=== PATIENT | male | born 1990 | race Caucasian/White ===

== ENCOUNTER → 2018-09-08 | Outpatient (CLI) | payer OTHER ==
[2015-07-31 17:00] VITALS: BP 126/57
--- NOTE | 2018-09-08 12:57 | KCIC ---
MRI of the brain without contrast 09/08/2018 Clinical History: Seizures, confusion and memory loss. Technique: Unenhanced T1-weighted sagittal and axial, T2-weighted axial and coronal and FLAIR, gradient echo and diffusion-weighted axial images of the brain were obtained. Additionally thin section FLAIR and T2-weighted coronal images through the temporal lobes were obtained Findings: Comparison is made to patient's CT scan of the head dated 07/31/2015. Some of the images are degraded by patient motion. The ventricles and sulci are within normal limits in size and configuration. No area of significant abnormal signal intensity is seen involving brain parenchyma. No extra-axial fluid collection is noted. No MRI evidence of acute ischemia/infarction. Images through the temporal lobes are within normal limits. Mild mucosal thickening in seen scattered throughout the paranasal sinuses. There are minimal bilateral mastoid effusions. Normal flow voids are seen within the major vascular structures surrounding the brain parenchyma. IMPRESSION: 1. Negative MRI of the brain. 2. Mild paranasal sinus and mastoid disease. Electronically signed by: Amish Valentin MD (09/08/2018 12:54 PM) [facility]-KCIC1
== END | disposition home or self-care (01) ==
LOC: KCIC MRI 10:36
DX: R00.0 Tachycardia, unspecified (principal); G40.909 Epilepsy, unspecified, not intractable, without status epilepticus; R41.0 Disorientation, unspecified; J34.9 Unspecified disorder of nose and nasal sinuses; M19.90 Unspecified osteoarthritis, unspecified site; F41.9 Anxiety disorder, unspecified; F17.200 Nicotine dependence, unspecified, uncomplicated; Z72.89 Other problems related to lifestyle; Z87.19 Personal history of other diseases of the digestive system
CPT/HCPCS: 70551

== ENCOUNTER 2019-03-05 19:27 | Inpatient (IN) | payer OTHER ==
[~2019-03-05] VITALS: Ht 167.6 cm; Wt 101.8 kg
[2019-03-05] MEDS ORDERED: MULTIVIT INFUSN,ADULT 4,VIT K 10 ML, THIAMINE INJ 100 MG, FOLIC ACID INJ 1 MG in IV NOR... IV ONE (20:00)
[2019-03-05 20:05] LABS: BASO # 0.1 x10^3/uL (0.0-0.2); BASO % 1 % (0-3); EOS # 0.1 x10^3/uL (0.0-0.7); EOS % 1 % (0-3); HEMATOCRIT 45.8 % (39.0-53.0); HEMOGLOBIN 15.8 g/dL (13.0-17.5); LYMPH # 4.8 x10^3/uL (1.0-4.8); LYMPH % 51 % (24-48); MEAN CORPUSCULAR HEMOGLOBIN 32 pg (25-35); MEAN CORPUSCULAR HGB CONC 35 g/dL (31-37); MEAN CORPUSCULAR VOLUME 93 fL (79-100); MONO # 0.5 x10^3/uL (0.0-1.1); MONO % 5 % (0-9); NEUT % 42 % (31-73); PLATELET COUNT 235 x10^3/uL (140-400); RED BLOOD COUNT 4.92 x10^6/uL (4.30-5.70); RED CELL DISTRIBUTION WIDTH 15.2 % (11.5-14.5); WHITE BLOOD COUNT 9.5 x10^3/uL (4.0-11.0)
[2019-03-05 20:07] LABS: BILIRUBIN,URINE NEGATIVE (NEG); CLARITY,URINE CLEAR; COLOR,URINE YELLOW; NITRITE,URINE NEGATIVE (NEG); PH,URINE 5.5; PROTEIN,URINE NEGATIVE (NEG-TRACE); UROBILINOGEN,URINE 0.2 mg/dL (0.2 mg/dL)
[2019-03-05 20:13] LABS: BACTERIA,URINE 0 /HPF (0-FEW); RBC,URINE 0 /HPF (0-2); SQUAMOUS EPITHELIAL CELL,UR OCC /LPF
[2019-03-05 20:14] LABS: CALCIUM 8.7 mg/dL (8.5-10.1); CREATININE 0.9 mg/dL (0.7-1.3); GFR 99.1; POTASSIUM 3.4 mmol/L (3.5-5.1)
[2019-03-05 20:15] LABS: BARBITURATES NEG (NEG); BENZODIAZEPINES NEG (NEG); CANNABINOIDS NEG (NEG); COCAINE NEG (NEG); METHADONE NEG (NEG); OPIATES NEG (NEG); PHENCYCLIDINE NEG (NEG)
[2019-03-05 20:16] LABS: AMPHETAMINE/METHAMPHETAMINE NEG (NEG)
[2019-03-05 20:20] LABS: DIRECT BILIRUBIN 0.1 mg/dL (0.0-0.2); TOTAL BILIRUBIN 0.5 mg/dL (0.2-1.0); TOTAL PROTEIN 8.2 g/dL (6.4-8.2)
[2019-03-05] MEDS ORDERED: ONDANSETRON PF 4 MG/2 ML VIAL. IV PRN (21:00)
[2019-03-05] MEDS ORDERED: chlordiazePOXIDE HCL 25 MG CAPSULE PO PRN (21:00)
--- NOTE | 2019-03-05 21:30 | NUR ---
Patient arrived to unit, accompanied by . Patient C/O headache and anxiety. Patient states he has been accepted to [facility] tx center and needs to detox to start Tx. Per patient he has went through withdrawal before and had seizures- seizure precautions in place. Pt in Sinus Tach, on RA, assessment complete- will continue to monitor. Call light within reach, bed in low locked position.
[2019-03-05 21:39] LABS: AMYLASE 50 U/L (25-115); LIPASE 172 U/L (73-393)
[2019-03-05 21:40] VITALS: BP 134/89
[2019-03-05] MEDS ORDERED: RIFA550T4 PO (22:26)
[2019-03-05] MEDS ORDERED: CLON1TAB11 PO (22:26)
[2019-03-05] MEDS ORDERED: METO50TA6 PO (22:26)
[2019-03-05] MEDS ORDERED: CLON0.2T PO (22:26)
[2019-03-05] MEDS ORDERED: QUET100T4 PO (22:26)
--- NOTE | 2019-03-05 22:42 | PHYS DOC ---
Past Medical History Past Medical History: Alcoholism, Liver Disease, Renal Failure, Other Additional Past Medical Histor: seizures from ETOH withdraw; cirrhosis (GUZMAN BACK APRN) Past Surgical History: Other Additional Past Surgical Histo: DIALYSIS PORT TO RIGHT CHEST (GUZMAN BACK APRN) Alcohol Use: Heavy Drug Use: Marijuana (GUZMAN BACK APRN) Adult General Chief Complaint Chief Complaint: ALCOHOL INTOXICATION HPI HPI Patient is a 28 year old male who presents with acute alcohol intoxication. The patient has been drinking heavily today and states that he has had both vodka and tequila. He has been accepted into [facility] for rehabilitation but needs to have medical detoxification done first. The patient does have a history of seizure activity when he has withdrawn from alcohol. 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 He was seen at [facility] and was sober for approximately 14 months. Prior to that he had had hepatorenal failure. He was on dialysis for several months. He states that he relapsed approximately a week and a half ago and was seen at [facility]. He did leave [facility]. He states that he has been drinking extremely heavily for the past 10-12 days. His last drink was in the car prior to entering the emergency department. (GUZMAN BACK APRN) Review of Systems Review of Systems Constitutional: Denies fever or chills [] Eyes: Denies change in visual acuity, redness, or eye pain [] HENT: Denies nasal congestion or sore throat [] Respiratory: Denies cough or shortness of breath [] Cardiovascular: No additional information not addressed in HPI [] GI: Denies abdominal pain, nausea, vomiting, bloody stools or diarrhea [] : Denies dysuria or hematuria [] Musculoskeletal: Denies back pain or joint pain [] Integument: Denies rash or skin lesions [] Neurologic: Denies headache, focal weakness or sensory changes [] Endocrine: Denies polyuria or polydipsia [] All other systems were reviewed and found to be within normal limits, except as documented in this note. (GUZMAN BACK APRN) Current Medications Current Medications Current Medications Medications (Trade) Dose Ordered Sig/Patsy Start Time Stop Time Status Last Admin Dose Admin Multivitamins 10 ml/Thiamine HCl 100 mg/Folic Acid 1 mg/Sodium Chloride 1,011.2 ml @ 1,000.088 mls/hr 1X ONCE 03/05/19 20:00 03/05/19 21:00 DC 03/05/19 20:13 1,000.088 MLS/HR (MICHELLE BRINK DO) Allergies Allergies Allergies Coded Allergies Type Severity Reaction Last Updated Verified erythromycin base Allergy Intermediate Hives 06/11/15 Yes (MICHELLE BRINK DO) Physical Exam Physical Exam Constitutional: Well developed, well nourished, no acute distress, non-toxic appearance. [] HENT: Normocephalic, atraumatic, bilateral external ears normal, oropharynx moist, no oral exudates, nose normal. [] Eyes: PERRLA, EOMI, conjunctiva normal, no discharge. [] Neck: Normal range of motion, no tenderness, supple, no stridor. [] Cardiovascular:Heart rate regular rhythm, no murmur [] Lungs & Thorax: Bilateral breath sounds clear to auscultation [] Abdomen: Bowel sounds normal, soft, no tenderness, no masses, no pulsatile masses. [] Skin: Warm, dry, no erythema, no rash. [] Back: No tenderness, no CVA tenderness. [] Extremities: No tenderness, no cyanosis, no clubbing, ROM intact, no edema. [] Neurologic: Alert and oriented X 3, patient is intoxicated Psychologic: The patient is intoxicated (GUZMAN BACK PRODUCT TRAINER) Current Patient Data Vital Signs Vital Signs Date Time Temp Pulse Resp B/P (MAP) Pulse Ox O2 Delivery O2 Flow Rate FiO2 03/05/19 20:30 124 20 100 Room Air 03/05/19 20:00 128/73 (91) 03/05/19 19:37 98.4 98.4 (MICHELLE BRINK DO) Lab Values Laboratory Tests Test 03/05/19 18:47 03/05/19 18:50 03/05/19 20:10 Urine Collection Type Unknown Urine Color Yellow Urine Clarity Clear Urine pH 5.5 Urine Specific [place] 1.010 Urine Protein Negative mg/dL (NEG-TRACE) Urine Glucose (UA) Negative mg/dL (NEG) Urine Ketones (Stick) Negative mg/dL (NEG) Urine Blood Negative (NEG) Urine Nitrite Negative (NEG) Urine Bilirubin Negative (NEG) Urine Urobilinogen Dipstick 0.2 mg/dL (0.2 mg/dL) Urine Leukocyte Esterase Negative (NEG) Urine RBC 0 /HPF (0-2) Urine WBC 1-4 /HPF (0-4) Urine Squamous Epithelial Cells Occ /LPF Urine Bacteria 0 /HPF (0-FEW) Urine Mucus Slight /LPF Urine Opiates Screen Neg (NEG) Urine Methadone Screen Neg (NEG) Urine Barbiturates Neg (NEG) Urine Phencyclidine Screen Neg (NEG) Urine Amphetamine/Methamphetamine Neg (NEG) Urine Benzodiazepines Screen Neg (NEG) Urine Cocaine Screen Neg (NEG) Urine Cannabinoids Screen Neg (NEG) Urine Ethyl Alcohol Pos (NEG) White Blood Count 9.5 x10^3/uL (4.0-11.0) Red Blood Count 4.92 x10^6/uL (4.30-5.70) Hemoglobin 15.8 g/dL (13.0-17.5) Hematocrit 45.8 % (39.0-53.0) Mean Corpuscular Volume 93 fL (79-100) Mean Corpuscular Hemoglobin 32 pg (25-35) Mean Corpuscular Hemoglobin Concent 35 g/dL (31-37) Red Cell Distribution Width 15.2 % (11.5-14.5) H Platelet Count 235 x10^3/uL (140-400) Neutrophils (%) (Auto) 42 % (31-73) Lymphocytes (%) (Auto) 51 % (24-48) H Monocytes (%) (Auto) 5 % (0-9) Eosinophils (%) (Auto) 1 % (0-3) Basophils (%) (Auto) 1 % (0-3) Neutrophils # (Auto) 4.0 x10^3uL (1.8-7.7) Lymphocytes # (Auto) 4.8 x10^3/uL (1.0-4.8) Monocytes # (Auto) 0.5 x10^3/uL (0.0-1.1) Eosinophils # (Auto) 0.1 x10^3/uL (0.0-0.7) Basophils # (Auto) 0.1 x10^3/uL (0.0-0.2) Sodium Level 147 mmol/L (136-145) H Potassium Level 3.4 mmol/L (3.5-5.1) L Chloride Level 105 mmol/L (98-107) Carbon Dioxide Level 24 mmol/L (21-32) Anion Gap 18 (6-14) H Blood Urea Nitrogen 4 mg/dL (8-26) L Creatinine 0.9 mg/dL (0.7-1.3) Estimated GFR (Cockcroft-Gault) 99.1 BUN/Creatinine Ratio 4 (6-20) L Glucose Level 147 mg/dL (70-99) H Calcium Level 8.7 mg/dL (8.5-10.1) Total Bilirubin 0.5 mg/dL (0.2-1.0) Direct Bilirubin 0.1 mg/dL (0.0-0.2) Aspartate Amino Transferase (AST) 51 U/L (15-37) H Alanine Aminotransferase (ALT) 44 U/L (16-63) Alkaline Phosphatase 126 U/L (46-116) H Total Protein 8.2 g/dL (6.4-8.2) Albumin 4.0 g/dL (3.4-5.0) Albumin/Globulin Ratio 1.0 (1.0-1.7) Amylase Level 50 U/L (25-115) Lipase 172 U/L (73-393) Ethyl Alcohol Level 281 mg/dL (0-10) H Ammonia 25 mcmol/L (11-34) Laboratory Tests 03/05/19 18:50 Laboratory Tests 03/05/19 18:50 (MICHELLE BRINK DO) EKG EKG [] (GUZMAN BACK APRN) Radiology/Procedures Radiology/Procedures [] (GUZMAN BACK APRN) Course & Med Decision Making Course & Med Decision Making Pertinent Labs and Imaging studies reviewed. (See chart for details) []The patient is being admitted to Dr. Francisco's service. Alcohol withdrawal protocol has been initiated. The patient was given a banana bag in the emergency department. (GUZMAN BACK APRN) Dragon Disclaimer Dragon Disclaimer This electronic medical record was generated, in whole or in part, using a voice recognition dictation system. (GUZMAN BACK APRN) Departure Departure Impression: Primary Impression: Acute alcohol intoxication Additional Impression: Alcohol withdrawal Disposition: 09 ADMITTED INPATIENT Admitting Physician: Madeline Francisco (GUZMAN BACK APRN) Condition: GOOD Referrals: KALPANA ROSE (PCP) Scripts Lorazepam (ATIVAN) 0.5 Mg Tablet 0.5 MG PO TID for withdrawal for 5 Days, #15 TAB Prov: JUAN ANTONIO VANEGAS MD 03/07/19 Attending Signature Attending Signature I have reviewed the PA/MILITARY PERSONNEL SPECIALIST's note and plan of care. I was available for consultation as needed during the patient's visit in the emergency department. I agree with the clinical impression, plan, and disposition. (MICHELLE BRINK DO) Problem Qualifiers GUZMAN BACK APRN Mar 05, 2019 22:42 MICHELLE BRINK DO Mar 11, 2019 00:48
[2019-03-05] MEDS: ACETAMINOPHEN 325 MG TABLET. PO PRN (22:54)
[2019-03-05 23:05] VITALS: BP 150/94
[2019-03-05] MEDS: chlordiazePOXIDE HCL 25 MG CAPSULE PO PRN (23:05)
[2019-03-06] MEDS: chlordiazePOXIDE HCL 25 MG CAPSULE PO PRN ×3 (00:13→23:43)
[2019-03-06] MEDS ORDERED: cloNIDine HCL 0.2 MG TABLET PO PRN (00:45)
[2019-03-06] MEDS ORDERED: NICOTINE 21MG PATCH. TD ONE (01:00)
[2019-03-06] MEDS: ACETAMINOPHEN 325 MG TABLET. PO PRN (03:39)
[2019-03-06 03:42] VITALS: BP 148/88
[2019-03-06 04:55] LABS: BASO % 1 % (0-3); EOS # 0.1 x10^3/uL (0.0-0.7); EOS % 2 % (0-3); HEMATOCRIT 39.2 % (39.0-53.0); HEMOGLOBIN 13.5 g/dL (13.0-17.5); LYMPH % 55 % (24-48); MEAN CORPUSCULAR HEMOGLOBIN 32 pg (25-35); MEAN CORPUSCULAR HGB CONC 34 g/dL (31-37); MEAN CORPUSCULAR VOLUME 94 fL (79-100); MONO # 0.5 x10^3/uL (0.0-1.1); MONO % 7 % (0-9); NEUT # 2.6 x10^3uL (1.8-7.7); NEUT % 36 % (31-73); PLATELET COUNT 165 x10^3/uL (140-400); RED BLOOD COUNT 4.18 x10^6/uL (4.30-5.70); RED CELL DISTRIBUTION WIDTH 15.3 % (11.5-14.5); WHITE BLOOD COUNT 7.3 x10^3/uL (4.0-11.0)
[2019-03-06 05:20] LABS: CALCIUM 8.3 mg/dL (8.5-10.1); CREATININE 0.8 mg/dL (0.7-1.3); GFR 113.5; POTASSIUM 3.2 mmol/L (3.5-5.1)
[2019-03-06 07:00] VITALS: BP 138/72
--- NOTE | 2019-03-06 08:28 | EKG ---
[facility] [address] [place] [address] Test Date: 2019-03-05 Test Time: 19:39:23 Pat Name: RK ISRAEL Department: Room: 246 1 Gender: Male Account Technician: EMIR : 1990 Requested By: GUZMAN BACK Order Number: [id number] Reading MD: Neal Yung MD Measurements Intervals [place] Rate: 146 P: -11 DE: 126 QRS: 78 QRSD: 78 T: 51 QT: 264 QTc: 413 Interpretive Statements SINUS TACHYCARDIA NON-SPECIFIC ST/T CHANGES Electronically Signed On 03-10-2019 9:39:32 CDT by Neal Yung MD
[2019-03-06] MEDS: MULTIVIT INFUSN,ADULT 4,VIT K 10 ML, THIAMINE INJ 100 MG, FOLIC ACID INJ 1 MG in IV NOR... IV SCH (08:37)
[2019-03-06] MEDS: METOPROLOL TART IMMED RELEASE 50 MG TABLET. PO SCH ×2 (08:37→21:06)
[2019-03-06] MEDS: rifAXIMin 550 MG TABLET PO SCH ×2 (08:38→21:05)
[2019-03-06] MEDS: clonazePAM 1 MG TABLET PO SCH ×2 (08:38→21:05)
[2019-03-06] MEDS: NICOTINE 21MG PATCH. TD SCH (09:41)
[2019-03-06 11:00] VITALS: BP 140/105
--- NOTE | 2019-03-06 12:07 | PDOC1 ---
History and Physical Date of Admission Date of Admission 03/06/2019 Identification/Chief Complaint Chief Complaint I want to quit drinking Problems: (1) Acute alcohol intoxication (2) Seizures Source Source: Chart review, Patient History of Present Illness History of Present Illness Patient is a 28-year-old gentleman who has a long-standing history of alcoholism was seen in previous admissions and resulted in hepatorenal syndrome at some point he has had seizure activity as a result of withdrawal from alcohol times that he has tried to stay sober. The patient recently had a stay over the last month into the new year at [facility] in [place] he relates. He finished the program unfortunately the stress in his life he recurred again to alcohol to numb his pain. When asked about this pain he relates that more of a physical and demanding job and he drinks in order to deal better with the pain. Reassurances been provided all of his concerns of been addressed to the best of my abilities the patient is not exhibiting signs of withdrawal at the present time but given his history off seizure and more severe withdrawal symptoms he will be admitted for treatment. does seem to have good insight of his problem he has a and 4 kids that he is hoping to get better in order to better take care of his family. The patient denies headache no blurred vision no seizure-like activity no syncopal episodes were reported no chest pain or palpitations reported during my encounter but he said that he had some sensations of skipped beats in the middle of the night and looked in the monitor and noticed some spikes at that time. Reassurances been provided that this may have been premature ventricular contractions which are not uncommon especially with heavy alcohol intake. Patient denies nausea vomiting no abdominal pain reported no jaundice no hematochezia QTc no hematemesis no black tarry stools were reported either. Past Medical History Pulmonary: Bronchitis Hepatobiliary: Cirrhosis Renal/: Acute renal failure Past Surgical History Past Surgical History: Other Current Medications Current Medications Current Medications Medications (Trade) Dose Ordered Sig/Patsy Start Time Stop Time Status Last Admin Dose Admin Acetaminophen (Tylenol) 650 mg PRN Q4HRS PRN 03/05/19 21:00 03/06/19 20:59 03/06/19 03:39 650 MG Chlordiazepoxide (Librium) 100 mg PRN Q1HR PRN 03/05/19 21:00 Clonazepam (KlonoPIN) 1 mg BID 03/06/19 09:00 03/06/19 08:38 1 MG Clonidine HCl (Catapres) 0.2 mg PRN TID PRN 03/06/19 00:45 Lorazepam (Ativan) 2 mg PRN Q2HRS PRN 03/06/19 12:00 UNV Metoprolol Tartrate (Lopressor) 50 mg BID 03/06/19 09:00 03/06/19 08:37 50 MG Multivitamins 10 ml/Thiamine HCl 100 mg/Folic Acid 1 mg/Sodium Chloride 1,011.2 ml @ 100 mls/ hr DAILY 03/06/19 09:00 03/10/19 19:07 03/06/19 08:37 100 MLS/HR Nicotine (Nicoderm Cq 21mg) 1 patch 1X ONCE 03/06/19 01:00 03/06/19 01:01 DC 03/06/19 00:55 1 PATCH Ondansetron HCl (Zofran) 4 mg PRN Q8HRS PRN 03/05/19 21:00 03/06/19 20:59 03/05/19 22:54 4 MG Quetiapine Fumarate (SEROquel) 100 mg HS 03/06/19 21:00 Rifaximin (Xifaxan) 550 mg BID 03/06/19 09:00 03/06/19 08:38 550 MG Allergies Allergies Allergies Coded Allergies Type Severity Reaction Last Updated Verified erythromycin base Allergy Intermediate Hives 06/11/15 Yes ROS Review of System CONSTITUTIONAL: No fever or chills EYES: No recent changes SKIN: No rash or itching CARDIOVASCULAR: No chest pain, syncope, palpitations, or edema RESPIRATORY: No SOB or cough GASTROINTESTINAL: No nausea, vomiting or abdominal pain NEUROLOGICAL: No headaches or weakness ENDOCRINE: No cold or heat intolerance GENITOURINARY: No urgency or frequency of urination MUSCULOSKELETAL: No back pain or joint pain LYMPHATICS: No enlarged lymph nodes PSYCHIATRIC: No anxiety or depression Physical Exam Physical Exam Gen.: well-developed well-nourished in no apparent distress Head: Normal shape atraumatic Eyes: Pupils equal reactive to light and accommodation, normal conjunctivae and lids Ears: Normal shape Nose: Normal shape no trauma Mouth: No exudates of the back of throat no thrush no lesions Neck: Supple no JVD no carotid bruit or lymphadenopathy no thyromegaly Chest: Lungs clear to auscultation with good inspiratory effort no crackles rales or rhonchi Cardiovascular: S1-S2 regular rhythm no murmurs gallops or rubs Abdomen: Bowel sounds present soft nontender no hepatosplenomegaly appreciated sign Extremities: No clubbing no cyanosis no edema peripheral pulses palpated bilaterally Neurological: Alert awake oriented in person time place and situation, cranial nerves II through XII intact, no motor or sensory deficits appreciated Psych: Appropriate mood, cooperative Vitals Vitals Vital Signs Date Time Temp Pulse Resp B/P (MAP) Pulse Ox O2 Delivery O2 Flow Rate FiO2 03/06/19 11:00 98.1 75 18 140/105 (117) 99 Room Air 98.1 Labs Labs Laboratory Tests Test 03/05/19 18:47 03/05/19 18:50 03/05/19 20:10 03/06/19 04:30 Urine Collection Type Unknown Urine Color Yellow Urine Clarity Clear Urine pH 5.5 Urine Specific [place] 1.010 Urine Protein Negative mg/dL (NEG-TRACE) Urine Glucose (UA) Negative mg/dL (NEG) Urine Ketones (Stick) Negative mg/dL (NEG) Urine Blood Negative (NEG) Urine Nitrite Negative (NEG) Urine Bilirubin Negative (NEG) Urine Urobilinogen Dipstick 0.2 mg/dL (0.2 mg/dL) Urine Leukocyte Esterase Negative (NEG) Urine RBC 0 /HPF (0-2) Urine WBC 1-4 /HPF (0-4) Urine Squamous Epithelial Cells Occ /LPF Urine Bacteria 0 /HPF (0-FEW) Urine Mucus Slight /LPF Urine Opiates Screen Neg (NEG) Urine Methadone Screen Neg (NEG) Urine Barbiturates Neg (NEG) Urine Phencyclidine Screen Neg (NEG) Urine Amphetamine/Methamphetamine Neg (NEG) Urine Benzodiazepines Screen Neg (NEG) Urine Cocaine Screen Neg (NEG) Urine Cannabinoids Screen Neg (NEG) Urine Ethyl Alcohol Pos (NEG) White Blood Count 9.5 x10^3/uL (4.0-11.0) 7.3 x10^3/uL (4.0-11.0) Red Blood Count 4.92 x10^6/uL (4.30-5.70) 4.18 x10^6/uL (4.30-5.70) Hemoglobin 15.8 g/dL (13.0-17.5) 13.5 g/dL (13.0-17.5) Hematocrit 45.8 % (39.0-53.0) 39.2 % (39.0-53.0) Mean Corpuscular Volume 93 fL (79-100) 94 fL (79-100) Mean Corpuscular Hemoglobin 32 pg (25-35) 32 pg (25-35) Mean Corpuscular Hemoglobin Concent 35 g/dL (31-37) 34 g/dL (31-37) Red Cell Distribution Width 15.2 % (11.5-14.5) 15.3 % (11.5-14.5) Platelet Count 235 x10^3/uL (140-400) 165 x10^3/uL (140-400) Neutrophils (%) (Auto) 42 % (31-73) 36 % (31-73) Lymphocytes (%) (Auto) 51 % (24-48) 55 % (24-48) Monocytes (%) (Auto) 5 % (0-9) 7 % (0-9) Eosinophils (%) (Auto) 1 % (0-3) 2 % (0-3) Basophils (%) (Auto) 1 % (0-3) 1 % (0-3) Neutrophils # (Auto) 4.0 x10^3uL (1.8-7.7) 2.6 x10^3uL (1.8-7.7) Lymphocytes # (Auto) 4.8 x10^3/uL (1.0-4.8) 4.0 x10^3/uL (1.0-4.8) Monocytes # (Auto) 0.5 x10^3/uL (0.0-1.1) 0.5 x10^3/uL (0.0-1.1) Eosinophils # (Auto) 0.1 x10^3/uL (0.0-0.7) 0.1 x10^3/uL (0.0-0.7) Basophils # (Auto) 0.1 x10^3/uL (0.0-0.2) 0.0 x10^3/uL (0.0-0.2) Sodium Level 147 mmol/L (136-145) 143 mmol/L (136-145) Potassium Level 3.4 mmol/L (3.5-5.1) 3.2 mmol/L (3.5-5.1) Chloride Level 105 mmol/L (98-107) 105 mmol/L (98-107) Carbon Dioxide Level 24 mmol/L (21-32) 25 mmol/L (21-32) Anion Gap 18 (6-14) 13 (6-14) Blood Urea Nitrogen 4 mg/dL (8-26) 4 mg/dL (8-26) Creatinine 0.9 mg/dL (0.7-1.3) 0.8 mg/dL (0.7-1.3) Estimated GFR (Cockcroft-Gault) 99.1 113.5 BUN/Creatinine Ratio 4 (6-20) Glucose Level 147 mg/dL (70-99) 91 mg/dL (70-99) Calcium Level 8.7 mg/dL (8.5-10.1) 8.3 mg/dL (8.5-10.1) Total Bilirubin 0.5 mg/dL (0.2-1.0) Direct Bilirubin 0.1 mg/dL (0.0-0.2) Aspartate Amino Transf (AST/SGOT) 51 U/L (15-37) Alanine Aminotransferase (ALT/SGPT) 44 U/L (16-63) Alkaline Phosphatase 126 U/L (46-116) Total Protein 8.2 g/dL (6.4-8.2) Albumin 4.0 g/dL (3.4-5.0) Albumin/Globulin Ratio 1.0 (1.0-1.7) Amylase Level 50 U/L (25-115) Lipase 172 U/L (73-393) Ethyl Alcohol Level 281 mg/dL (0-10) Ammonia 25 mcmol/L (11-34) Laboratory Tests Test 03/05/19 18:47 03/05/19 18:50 03/05/19 20:10 03/06/19 04:30 Urine Collection Type Unknown Urine Color Yellow Urine Clarity Clear Urine pH 5.5 Urine Specific [place] 1.010 Urine Protein Negative mg/dL (NEG-TRACE) Urine Glucose (UA) Negative mg/dL (NEG) Urine Ketones (Stick) Negative mg/dL (NEG) Urine Blood Negative (NEG) Urine Nitrite Negative (NEG) Urine Bilirubin Negative (NEG) Urine Urobilinogen Dipstick 0.2 mg/dL (0.2 mg/dL) Urine Leukocyte Esterase Negative (NEG) Urine RBC 0 /HPF (0-2) Urine WBC 1-4 /HPF (0-4) Urine Squamous Epithelial Cells Occ /LPF Urine Bacteria 0 /HPF (0-FEW) Urine Mucus Slight /LPF Urine Opiates Screen Neg (NEG) Urine Methadone Screen Neg (NEG) Urine Barbiturates Neg (NEG) Urine Phencyclidine Screen Neg (NEG) Urine Amphetamine/Methamphetamine Neg (NEG) Urine Benzodiazepines Screen Neg (NEG) Urine Cocaine Screen Neg (NEG) Urine Cannabinoids Screen Neg (NEG) Urine Ethyl Alcohol Pos (NEG) White Blood Count 9.5 x10^3/uL (4.0-11.0) 7.3 x10^3/uL (4.0-11.0) Red Blood Count 4.92 x10^6/uL (4.30-5.70) 4.18 x10^6/uL (4.30-5.70) Hemoglobin 15.8 g/dL (13.0-17.5) 13.5 g/dL (13.0-17.5) Hematocrit 45.8 % (39.0-53.0) 39.2 % (39.0-53.0) Mean Corpuscular Volume 93 fL (79-100) 94 fL (79-100) Mean Corpuscular Hemoglobin 32 pg (25-35) 32 pg (25-35) Mean Corpuscular Hemoglobin Concent 35 g/dL (31-37) 34 g/dL (31-37) Red Cell Distribution Width 15.2 % (11.5-14.5) 15.3 % (11.5-14.5) Platelet Count 235 x10^3/uL (140-400) 165 x10^3/uL (140-400) Neutrophils (%) (Auto) 42 % (31-73) 36 % (31-73) Lymphocytes (%) (Auto) 51 % (24-48) 55 % (24-48) Monocytes (%) (Auto) 5 % (0-9) 7 % (0-9) Eosinophils (%) (Auto) 1 % (0-3) 2 % (0-3) Basophils (%) (Auto) 1 % (0-3) 1 % (0-3) Neutrophils # (Auto) 4.0 x10^3uL (1.8-7.7) 2.6 x10^3uL (1.8-7.7) Lymphocytes # (Auto) 4.8 x10^3/uL (1.0-4.8) 4.0 x10^3/uL (1.0-4.8) Monocytes # (Auto) 0.5 x10^3/uL (0.0-1.1) 0.5 x10^3/uL (0.0-1.1) Eosinophils # (Auto) 0.1 x10^3/uL (0.0-0.7) 0.1 x10^3/uL (0.0-0.7) Basophils # (Auto) 0.1 x10^3/uL (0.0-0.2) 0.0 x10^3/uL (0.0-0.2) Sodium Level 147 mmol/L (136-145) 143 mmol/L (136-145) Potassium Level 3.4 mmol/L (3.5-5.1) 3.2 mmol/L (3.5-5.1) Chloride Level 105 mmol/L (98-107) 105 mmol/L (98-107) Carbon Dioxide Level 24 mmol/L (21-32) 25 mmol/L (21-32) Anion Gap 18 (6-14) 13 (6-14) Blood Urea Nitrogen 4 mg/dL (8-26) 4 mg/dL (8-26) Creatinine 0.9 mg/dL (0.7-1.3) 0.8 mg/dL (0.7-1.3) Estimated GFR (Cockcroft-Gault) 99.1 113.5 BUN/Creatinine Ratio 4 (6-20) Glucose Level 147 mg/dL (70-99) 91 mg/dL (70-99) Calcium Level 8.7 mg/dL (8.5-10.1) 8.3 mg/dL (8.5-10.1) Total Bilirubin 0.5 mg/dL (0.2-1.0) Direct Bilirubin 0.1 mg/dL (0.0-0.2) Aspartate Amino Transf (AST/SGOT) 51 U/L (15-37) Alanine Aminotransferase (ALT/SGPT) 44 U/L (16-63) Alkaline Phosphatase 126 U/L (46-116) Total Protein 8.2 g/dL (6.4-8.2) Albumin 4.0 g/dL (3.4-5.0) Albumin/Globulin Ratio 1.0 (1.0-1.7) Amylase Level 50 U/L (25-115) Lipase 172 U/L (73-393) Ethyl Alcohol Level 281 mg/dL (0-10) Ammonia 25 mcmol/L (11-34) VTE Prophylaxis Ordered VTE Prophylaxis Devices: No VTE Pharmacological Prophylaxi: No (encouraged to ambulate) Assessment/Plan Assessment/Plan Acute alcohol intoxication Hypernatremia secondary to dehydration History of hepatorenal syndrome status post dialysis currently resolved Obesity with a BMI of 36 Plan: Continue with [place] protocol Banana bag Continue with golf caddy hemodynamics Further recommendations based on the clinical course Counseling regarding the importance of seeking a rehabilitation program was stressed to the patient he had not understanding all his concerns address to the best of my abilities DVT prophylaxis encourage ambulation JUAN ANTONIO VANEGAS MD Mar 06, 2019 12:07
--- NOTE | 2019-03-06 14:19 | NUR ---
This nurse scanned and administered 2mg ativan at 1206. When giving pt. his next dose, this nurse realized that she did not save the last administration. This nurse went back and manually administered the 1206 dose. Will continue to monitor.
[2019-03-06 14:42] VITALS: BP 153/106
[2019-03-06 19:35] VITALS: BP 132/90
[2019-03-06] MEDS ORDERED: QUEtiapine 100 MG TABLET. PO SCH (21:00)
[2019-03-06 23:05] VITALS: BP 139/79
[2019-03-07 03:16] VITALS: BP 135/89
[2019-03-07 07:16] VITALS: BP 155/101
[2019-03-07] MEDS: clonazePAM 1 MG TABLET PO SCH (08:07)
[2019-03-07] MEDS: MULTIVIT INFUSN,ADULT 4,VIT K 10 ML, THIAMINE INJ 100 MG, FOLIC ACID INJ 1 MG in IV NOR... IV SCH (08:07)
[2019-03-07] MEDS: rifAXIMin 550 MG TABLET PO SCH (08:07)
[2019-03-07] MEDS: METOPROLOL TART IMMED RELEASE 50 MG TABLET. PO SCH (08:07)
[2019-03-07] MEDS: NICOTINE 21MG PATCH. TD SCH (08:07)
--- NOTE | 2019-03-07 10:52 | NUR ---
SS following for discharge planning. SS reviewed pt chart. Pt is from home and is currently on room air. Pt has history of alcoholism. SS contacted PAT team for assessment and evaluation. No discharge needs noted at this time. SS will continue to follow for discharge planning. Pt's RN notified.
[2019-03-07 11:01] VITALS: BP 167/107
[2019-03-07] MEDS ORDERED: LORA0.5T96 PO (11:17)
[2019-03-07] MEDS ORDERED: LORazepam 0.5 MG TABLET PO PRN (11:45)
[2019-03-07] MEDS ORDERED: POTASSIUM CHLORIDE 20 MEQ TABLET.ER. PO ONE (14:15)
--- NOTE | 2019-03-07 14:29 | NUR ---
Discharge: Teaching verbal and written. Reviewed medications, alcohol withdraw, smoking cessation, ect. Patient verbalized understanding. IV removed without complications, catheter tip in-tact, dressing applied. All belongings with patient. Patient ambulated off of unit accompanied by MIK.
--- NOTE | 2019-03-07 15:32 | PDOC3 ---
Discharge Summary Visit Information Date of Admission: Mar 06, 2019 Date of Discharge: Mar 07, 2019 Admitting Diagnosis Comment: Acute alcohol intoxication Final Diagnosis Acute alcohol intoxication resolved Alcoholism History of withdrawal seizure Brief Hospital Course Allergies Allergies Coded Allergies Type Severity Reaction Last Updated Verified erythromycin base Allergy Intermediate Hives 06/11/15 Yes Vital Signs Vital Signs Date Time Temp Pulse Resp B/P (MAP) Pulse Ox O2 Delivery O2 Flow Rate FiO2 03/07/19 11:01 97.6 86 16 167/107 (127) 98 Room Air 97.6 Lab Results Laboratory Tests Test 03/05/19 18:47 03/05/19 18:50 03/05/19 20:10 03/06/19 04:30 Urine Collection Type Unknown Urine Color Yellow Urine Clarity Clear Urine pH 5.5 Urine Specific [place] 1.010 Urine Protein Negative mg/dL (NEG-TRACE) Urine Glucose (UA) Negative mg/dL (NEG) Urine Ketones (Stick) Negative mg/dL (NEG) Urine Blood Negative (NEG) Urine Nitrite Negative (NEG) Urine Bilirubin Negative (NEG) Urine Urobilinogen Dipstick 0.2 mg/dL (0.2 mg/dL) Urine Leukocyte Esterase Negative (NEG) Urine RBC 0 /HPF (0-2) Urine WBC 1-4 /HPF (0-4) Urine Squamous Epithelial Cells Occ /LPF Urine Bacteria 0 /HPF (0-FEW) Urine Mucus Slight /LPF Urine Opiates Screen Neg (NEG) Urine Methadone Screen Neg (NEG) Urine Barbiturates Neg (NEG) Urine Phencyclidine Screen Neg (NEG) Urine Amphetamine/Methamphetamine Neg (NEG) Urine Benzodiazepines Screen Neg (NEG) Urine Cocaine Screen Neg (NEG) Urine Cannabinoids Screen Neg (NEG) Urine Ethyl Alcohol Pos (NEG) White Blood Count 9.5 x10^3/uL (4.0-11.0) 7.3 x10^3/uL (4.0-11.0) Red Blood Count 4.92 x10^6/uL (4.30-5.70) 4.18 x10^6/uL (4.30-5.70) Hemoglobin 15.8 g/dL (13.0-17.5) 13.5 g/dL (13.0-17.5) Hematocrit 45.8 % (39.0-53.0) 39.2 % (39.0-53.0) Mean Corpuscular Volume 93 fL (79-100) 94 fL (79-100) Mean Corpuscular Hemoglobin 32 pg (25-35) 32 pg (25-35) Mean Corpuscular Hemoglobin Concent 35 g/dL (31-37) 34 g/dL (31-37) Red Cell Distribution Width 15.2 % (11.5-14.5) 15.3 % (11.5-14.5) Platelet Count 235 x10^3/uL (140-400) 165 x10^3/uL (140-400) Neutrophils (%) (Auto) 42 % (31-73) 36 % (31-73) Lymphocytes (%) (Auto) 51 % (24-48) 55 % (24-48) Monocytes (%) (Auto) 5 % (0-9) 7 % (0-9) Eosinophils (%) (Auto) 1 % (0-3) 2 % (0-3) Basophils (%) (Auto) 1 % (0-3) 1 % (0-3) Neutrophils # (Auto) 4.0 x10^3uL (1.8-7.7) 2.6 x10^3uL (1.8-7.7) Lymphocytes # (Auto) 4.8 x10^3/uL (1.0-4.8) 4.0 x10^3/uL (1.0-4.8) Monocytes # (Auto) 0.5 x10^3/uL (0.0-1.1) 0.5 x10^3/uL (0.0-1.1) Eosinophils # (Auto) 0.1 x10^3/uL (0.0-0.7) 0.1 x10^3/uL (0.0-0.7) Basophils # (Auto) 0.1 x10^3/uL (0.0-0.2) 0.0 x10^3/uL (0.0-0.2) Sodium Level 147 mmol/L (136-145) 143 mmol/L (136-145) Potassium Level 3.4 mmol/L (3.5-5.1) 3.2 mmol/L (3.5-5.1) Chloride Level 105 mmol/L (98-107) 105 mmol/L (98-107) Carbon Dioxide Level 24 mmol/L (21-32) 25 mmol/L (21-32) Anion Gap 18 (6-14) 13 (6-14) Blood Urea Nitrogen 4 mg/dL (8-26) 4 mg/dL (8-26) Creatinine 0.9 mg/dL (0.7-1.3) 0.8 mg/dL (0.7-1.3) Estimated GFR (Cockcroft-Gault) 99.1 113.5 BUN/Creatinine Ratio 4 (6-20) Glucose Level 147 mg/dL (70-99) 91 mg/dL (70-99) Calcium Level 8.7 mg/dL (8.5-10.1) 8.3 mg/dL (8.5-10.1) Total Bilirubin 0.5 mg/dL (0.2-1.0) Direct Bilirubin 0.1 mg/dL (0.0-0.2) Aspartate Amino Transf (AST/SGOT) 51 U/L (15-37) Alanine Aminotransferase (ALT/SGPT) 44 U/L (16-63) Alkaline Phosphatase 126 U/L (46-116) Total Protein 8.2 g/dL (6.4-8.2) Albumin 4.0 g/dL (3.4-5.0) Albumin/Globulin Ratio 1.0 (1.0-1.7) Amylase Level 50 U/L (25-115) Lipase 172 U/L (73-393) Ethyl Alcohol Level 281 mg/dL (0-10) Ammonia 25 mcmol/L (11-34) Brief Hospital Course Mr. Hernandez is a 28 old male who presented with acute alcohol intoxication. The patient has been battling with alcoholism since the age of 10 he relates to me. He also suffers from major depression and anxiety. Patient has attended several detox programs in the past. He has had withdrawal seizures in the past as well reason why he decided to come to the emergency department in order to avoid that outcomes. He did well during his hospital stay he did not percent of severe withdrawal symptoms. He was given extensive counseling and resources in the community which she will continue to reach out to in order to obtain sobriety. HIS concerns were addressed to the best of my abilities reassurance was provided he was hemodynamically stable and medically optimized for discharge Gen.: well-developed well-nourished in no apparent distress Head: Normal shape atraumatic Eyes: Pupils equal reactive to light and accommodation, normal conjunctivae and lids Ears: Normal shape Nose: Normal shape no trauma Mouth: No exudates of the back of throat no thrush no lesions Neck: Supple no JVD no carotid bruit or lymphadenopathy no thyromegaly Chest: Lungs clear to auscultation with good inspiratory effort no crackles rales or rhonchi Cardiovascular: S1-S2 regular rhythm no murmurs gallops or rubs Abdomen: Bowel sounds present soft nontender no hepatosplenomegaly appreciated sign Extremities: No clubbing no cyanosis no edema peripheral pulses palpated bilaterally Neurological: Alert awake oriented in person time place and situation, cranial nerves II through XII intact, no motor or sensory deficits appreciated Psych: Appropriate mood, cooperative Discharge Information Condition at Discharge: Improved Follow Up: Weeks Disposition/Orders: D/C to Home Scheduled Clonazepam (Clonazepam) 1 Mg Tablet, 1 MG PO BID for anxiety, (Reported) Entered as Reported by: Memo Weems on 03/05/192225 Last Taken: UNKNOWN on Unknown Date & Time Last Action: Continued on 39 by LANETTE TURCIOS RN Lorazepam (Ativan) 0.5 Mg Tablet, 0.5 MG PO TID for withdrawal for 5 Days, #15 Prescribed by: JUAN ANTONIO VANEGAS MD on 03/07/191116 Metoprolol Tartrate (Metoprolol Tartrate) 50 Mg Tablet, 50 MG PO BID for FOR HYPERTENSION, #60 Ref 0 (Reported) Entered as Reported by: Memo Weems on 03/05/192225 Last Taken: UNKNOWN on Unknown Date & Time Last Action: Continued on 39 by LANETTE TURCIOS RN Quetiapine Fumarate (Seroquel) 100 Mg Tablet, 100 MG PO HS for anxiety/ depression, (Reported) Entered as Reported by: Memo Weems on 03/05/192225 Last Taken: UNKNOWN on Unknown Date & Time Last Action: Converted on 39 by LANETTE TURCIOS RN Rifaximin (Xifaxan) 550 Mg Tablet, 1 TAB PO BID for ibs, #20 (Reported) Entered as Reported by: Memo Weems on 03/05/192225 Last Taken: UNKNOWN on Unknown Date & Time Last Action: Continued on 39 by LANETTE TURCIOS RN Scheduled PRN Clonidine Hcl (Clonidine Hcl) 0.2 Mg Tablet, 0.2 MG PO TID PRN for htn, ( Reported) Entered as Reported by: Memo Weems on 03/05/192225 Last Taken: UNKNOWN on Unknown Date & Time Last Action: Continued on 39 by MARCO A DNOALDSON HECTOR M MD Mar 07, 2019 15:32
[2019-05-03] MEDS ORDERED: DULO20CA PO (01:54)
== END 2019-03-07 14:28 | disposition home or self-care (01) | DRG 641 ==
LOC: ER 19:27 → 2 SOUTH 20:33 → EEVIPCON 20:33
PROVIDERS: ADMIT Internal Medicine; ATTEND Internal Medicine
DX: E87.0 Hyperosmolality and hypernatremia (principal); F10.239 Alcohol dependence with withdrawal, unspecified; F10.229 Alcohol dependence with intoxication, unspecified; K74.60 Unspecified cirrhosis of liver; F12.90 Cannabis use, unspecified, uncomplicated; E86.0 Dehydration; E66.9 Obesity, unspecified; F41.9 Anxiety disorder, unspecified; F32.9 Major depressive disorder, single episode, unspecified; R56.9 Unspecified convulsions; Z88.1 Allergy status to other antibiotic agents; Z68.36 Body mass index [BMI] 36.0-36.9, adult
CPT/HCPCS: 36415; 80048; 80053; 80307; 81001; 82140; 82150; 82248; 83690; 85025; 93005; 96365; G0480; J2060; J2405; J7030; 99285-25

== ENCOUNTER 2019-05-13 20:51 | Inpatient (IN) | payer OTHER ==
[~2019-05-13] VITALS: Ht 175.3 cm; Wt 108.9 kg
[~2019-05-13 20:51] MED LIST: CLON0.2T PO; CLON1TAB11 PO; DULO20CA PO; LORA0.5T96 PO; METO50TA6 PO; QUET100T4 PO; RIFA550T4 PO
--- NOTE | 2019-05-13 21:07 | PHYS DOC ---
Past Medical History Past Medical History: Alcoholism, Anxiety, Depression, Liver Disease, Renal Failure, Other Additional Past Medical Histor: seizures from ETOH withdraw; cirrhosis (ADELINA PRIETO APRN) Past Surgical History: Other Additional Past Surgical Histo: DIALYSIS PORT REMOVAL RIGHT CHEST (ADELINA PRIETO APRN) Alcohol Use: Heavy Drug Use: Marijuana (ADELINA PRIETO APRN) Adult General Chief Complaint Chief Complaint: ALCOHOL INTOXICATION HPI HPI Patient is a 28 year old male brought to the emergency department by his mother today with reports of alcohol intoxication and facial abrasions. Mother reports the patient vomited several times on his way to the emergency department. Patient admits to drinking approximately a fifth of 100 proof vodka today at home. Patient has abrasions to his forehead and the bridge of his nose with small laceration noted at the bridge of his nose. He denies any loss of consci ousness. He states that his neck hurts and his face. He is alert to person, place, and president. Patient is confused to year and day of the week. (ADELINA PRIETO APRN) Review of Systems Review of Systems Constitutional: Denies fever or chills [] Eyes: Denies eye pain [] HENT: Denies nasal congestion or sore throat; see HPI[] Respiratory: Denies cough or shortness of breath [] Cardiovascular: No additional information not addressed in HPI [] GI: Denies abdominal pain; see HPI : Denies dysuria or hematuria [] Musculoskeletal: See HPI Integument: Denies rash or skin lesions [] Neurologic: Denies focal weakness or sensory changes; reports headache Complete systems were reviewed and found to be within normal limits, except as documented in this note. (ADELINA PRIETO APRN) Current Medications Current Medications Current Medications Medications (Trade) Dose Ordered Sig/Patsy Start Time Stop Time Status Last Admin Dose Admin Diphtheria/ Tetanus/Acell Pertussis (Boostrix) 0.5 ml ONCE ONCE 05/13/19 22:45 05/13/19 22:46 DC 05/13/19 23:06 0.5 ML Lorazepam (Ativan Inj) 1 mg ONCE ONCE 05/13/19 23:15 05/13/19 23:16 DC 05/13/19 23:05 1 MG Multivitamins 10 ml/Thiamine HCl 100 mg/Folic Acid 1 mg/Sodium Chloride 1,011.2 ml @ 1,000.088 mls/hr 1X ONCE 05/13/19 21:30 05/13/19 22:30 DC 05/13/19 21:20 1,000.088 MLS/HR Ondansetron HCl (Zofran) 4 mg 1X ONCE 05/13/19 21:15 05/13/19 21:16 DC 05/13/19 21:20 4 MG (MICHELLE BRINK DO) Allergies Allergies Allergies Coded Allergies Type Severity Reaction Last Updated Verified erythromycin base Allergy Intermediate Hives 06/11/15 Yes (MICHELLE BRINK DO) Physical Exam Physical Exam Constitutional: Well developed, well nourished, intoxicated HENT: Normocephalic, bilateral external ears normal, bilateral TMs normal, oropharynx moist, no oral exudates; superficial laceration < 0.5 cm to bridge of nose, no septal hematoma, no bleeding from nares Eyes: PERRLA, sluggish, conjunctiva normal, no discharge. [] Neck: supple, no stridor. [] Cardiovascular:Heart rate regular rhythm, no murmur [] Lungs & Thorax: Bilateral breath sounds clear to auscultation [] Abdomen: Bowel sounds normal, soft, no tenderness, no masses, no pulsatile masses. [] Skin: Warm, dry, no erythema, no rash. [] Extremities: No tenderness, no cyanosis, no clubbing, ROM intact, no edema. [] Neurologic: Alert and oriented X 2, normal motor function, normal sensory function, no focal deficits noted. [] Psychologic: Affect aggitated, judgement impaired, mood normal. (ADELINA PRIETO APRN) Physical Exam Constitutional: Well developed, well nourished, no acute distress, non-toxic appearance HENT: Normocephalic, atraumatic, oropharynx moist Eyes:, EOMI, conjunctiva normal, horizontal nystagmus Neck: Normal range of motion, no tenderness, supple Cardiovascular: Heart rate normal, regular rhythm Lungs & Thorax: Bilateral breath sounds clear to auscultation, no wheezing Abdomen: Soft, no tenderness Skin: Warm, dry, no erythema, small facial abrasions- no active bleeding Extremities: No tenderness, ROM intact, no edema Neurologic: Alert and oriented, no focal deficits noted (BRINKMICHELLE DO) Current Patient Data Vital Signs Vital Signs Date Time Temp Pulse Resp B/P (MAP) Pulse Ox O2 Delivery O2 Flow Rate FiO2 05/13/19 21:00 98.3 95 18 135/78 (97) 95 Room Air 98.3 (BRINKMICHELLE Gabe DO) Lab Values Laboratory Tests Test 05/13/19 21:00 05/13/19 21:40 White Blood Count 9.3 x10^3/uL (4.0-11.0) Red Blood Count 4.99 x10^6/uL (4.30-5.70) Hemoglobin 16.8 g/dL (13.0-17.5) Hematocrit 48.5 % (39.0-53.0) Mean Corpuscular Volume 97 fL (79-100) Mean Corpuscular Hemoglobin 34 pg (25-35) Mean Corpuscular Hemoglobin Concent 35 g/dL (31-37) Red Cell Distribution Width 15.6 % (11.5-14.5) H Platelet Count 341 x10^3/uL (140-400) Neutrophils (%) (Auto) 33 % (31-73) Lymphocytes (%) (Auto) 55 % (24-48) H Monocytes (%) (Auto) 9 % (0-9) Eosinophils (%) (Auto) 2 % (0-3) Basophils (%) (Auto) 1 % (0-3) Neutrophils # (Auto) 3.1 x10^3uL (1.8-7.7) Lymphocytes # (Auto) 5.1 x10^3/uL (1.0-4.8) H Monocytes # (Auto) 0.8 x10^3/uL (0.0-1.1) Eosinophils # (Auto) 0.2 x10^3/uL (0.0-0.7) Basophils # (Auto) 0.1 x10^3/uL (0.0-0.2) Segmented Neutrophils % 33 % (35-66) L Lymphocytes % 56 % (24-48) H Monocytes % 10 % (0-10) Eosinophils % 1 % (0-5) Platelet Estimate Adequate (ADEQUATE) Sodium Level 146 mmol/L (136-145) H Potassium Level 3.5 mmol/L (3.5-5.1) Chloride Level 106 mmol/L (98-107) Carbon Dioxide Level 24 mmol/L (21-32) Anion Gap 16 (6-14) H Blood Urea Nitrogen 6 mg/dL (8-26) L Creatinine 1.0 mg/dL (0.7-1.3) Estimated GFR (Cockcroft-Gault) 87.7 BUN/Creatinine Ratio 6 (6-20) Glucose Level 97 mg/dL (70-99) Calcium Level 8.5 mg/dL (8.5-10.1) Total Bilirubin 0.3 mg/dL (0.2-1.0) Aspartate Amino Transferase (AST) 64 U/L (15-37) H Alanine Aminotransferase (ALT) 91 U/L (16-63) H Alkaline Phosphatase 144 U/L (46-116) H Total Protein 8.5 g/dL (6.4-8.2) H Albumin 4.3 g/dL (3.4-5.0) Albumin/Globulin Ratio 1.0 (1.0-1.7) Ethyl Alcohol Level 336 mg/dL (0-10) H Urine Opiates Screen Neg (NEG) Urine Methadone Screen Neg (NEG) Urine Barbiturates Neg (NEG) Urine Phencyclidine Screen Neg (NEG) Urine Amphetamine/Methamphetamine Neg (NEG) Urine Benzodiazepines Screen Pos (NEG) Urine Cocaine Screen Neg (NEG) Urine Cannabinoids Screen Neg (NEG) Urine Ethyl Alcohol Pos (NEG) Laboratory Tests 05/13/19 21:00 Laboratory Tests 05/13/19 21:00 (MICHELLE BRINK DO) Lab Values Laboratory Tests Test 05/13/19 21:00 05/13/19 21:40 White Blood Count 9.3 x10^3/uL (4.0-11.0) Red Blood Count 4.99 x10^6/uL (4.30-5.70) Hemoglobin 16.8 g/dL (13.0-17.5) Hematocrit 48.5 % (39.0-53.0) Mean Corpuscular Volume 97 fL (79-100) Mean Corpuscular Hemoglobin 34 pg (25-35) Mean Corpuscular Hemoglobin Concent 35 g/dL (31-37) Red Cell Distribution Width 15.6 % (11.5-14.5) H Platelet Count 341 x10^3/uL (140-400) Neutrophils (%) (Auto) 33 % (31-73) Lymphocytes (%) (Auto) 55 % (24-48) H Monocytes (%) (Auto) 9 % (0-9) Eosinophils (%) (Auto) 2 % (0-3) Basophils (%) (Auto) 1 % (0-3) Neutrophils # (Auto) 3.1 x10^3uL (1.8-7.7) Lymphocytes # (Auto) 5.1 x10^3/uL (1.0-4.8) H Monocytes # (Auto) 0.8 x10^3/uL (0.0-1.1) Eosinophils # (Auto) 0.2 x10^3/uL (0.0-0.7) Basophils # (Auto) 0.1 x10^3/uL (0.0-0.2) Segmented Neutrophils % 33 % (35-66) L Lymphocytes % 56 % (24-48) H Monocytes % 10 % (0-10) Eosinophils % 1 % (0-5) Platelet Estimate Adequate (ADEQUATE) Sodium Level 146 mmol/L (136-145) H Potassium Level 3.5 mmol/L (3.5-5.1) Chloride Level 106 mmol/L (98-107) Carbon Dioxide Level 24 mmol/L (21-32) Anion Gap 16 (6-14) H Blood Urea Nitrogen 6 mg/dL (8-26) L Creatinine 1.0 mg/dL (0.7-1.3) Estimated GFR (Cockcroft-Gault) 87.7 BUN/Creatinine Ratio 6 (6-20) Glucose Level 97 mg/dL (70-99) Calcium Level 8.5 mg/dL (8.5-10.1) Total Bilirubin 0.3 mg/dL (0.2-1.0) Aspartate Amino Transferase (AST) 64 U/L (15-37) H Alanine Aminotransferase (ALT) 91 U/L (16-63) H Alkaline Phosphatase 144 U/L (46-116) H Total Protein 8.5 g/dL (6.4-8.2) H Albumin 4.3 g/dL (3.4-5.0) Albumin/Globulin Ratio 1.0 (1.0-1.7) Ethyl Alcohol Level 336 mg/dL (0-10) H Urine Opiates Screen Neg (NEG) Urine Methadone Screen Neg (NEG) Urine Barbiturates Neg (NEG) Urine Phencyclidine Screen Neg (NEG) Urine Amphetamine/Methamphetamine Neg (NEG) Urine Benzodiazepines Screen Pos (NEG) Urine Cocaine Screen Neg (NEG) Urine Cannabinoids Screen Neg (NEG) Urine Ethyl Alcohol Pos (NEG) Laboratory Tests 05/13/19 21:00 Laboratory Tests 05/13/19 21:00 (ADELINA PRIETO APRN) EKG EKG [] (ADELINA PRIETO APRN) Radiology/Procedures Radiology/Procedures PROCEDURE: CT HEAD AND CERVICAL SPINE WO CT head, maxillofacial CT, and cervical spine without contrast History: Fall, alcoholic intoxication Technique: Noncontrast CT imaging was performed of the head, maxillofacial region, and cervical spine. Multiplanar reconstruction images are submitted. Exposure: One or more of the following individualized dose reduction techniques were utilized for this examination: 1. Automated exposure control 2. Adjustment of the mA and/or kV according to patient size 3. Use of iterative reconstruction technique. Head CT Comparison: July 31, 2015 Findings: No acute extra-axial or parenchymal hemorrhage is identified. There is no significant intra-axial mass effect, midline shift, or extra-axial fluid collection. The diaz-white differentiation of the major vascular territories is preserved. The ventricles, sulci, and cisterns are within normal limits in size and configuration. The mastoid air cells and the visualized paranasal sinuses are aerated. There is no significant focal calvarial abnormality. Impression: 1. No acute intracranial abnormality is identified. Cervical spine CT Comparison: None Findings: No acute cervical spine fracture is identified. Vertebral body stature and AP alignment are within normal limits. Atlanto-axial distance is within normal limits. There is appropriate alignment of lateral masses of C1 relative to C2. Occipital condylar-C1 relationship is maintained. There is multilevel cervical facet degenerative change. Impression: 1. No acute cervical spine fracture is identified. Maxillofacial CT: FINDINGS: There are no air-fluid levels of the paranasal sinuses. Mucosal thickening occludes right ostiomeatal unit. There is mild left maxillary sinus mucosal thickening inferiorly. No acute maxillofacial fracture is identified. IMPRESSION: 1. No acute maxillofacial fracture is identified. Electronically signed by: Bert Reed MD (05/13/2019 11:11 PM) [facility] [] (ADELINA PRIETO FERRYBOAT OPERATOR HELPER) Course & Med Decision Making Course & Med Decision Making Pertinent Labs and Imaging studies reviewed. (See chart for details) DX: acute alcohol intoxication MARTHA 336, UDS positive for benzodiazpines. CBC unremarkable, AST 64, ALT 91, Alk phos 144 Pt given a banana bag, 1L NS, and 1 mg of Ativan. Will have patient assessed for placement in detox as requested by patient after MARTHA drops below 200. 0040- Report to Dr. Brink, care transferred at this time. [] (ADELINA PRIETO FERRYBOAT OPERATOR HELPER) Course & Med Decision Making Sign out received from Prasad ROWE for patient with acute intoxication with history of chronic ETOH abuse. Patient seen and evaluated by myself. Labs reviewed. CT head/maxillofacial/cervical spine without acute process. PAT evaluation performed in the ED. Patient now more sober and reports history of DTs. Ativan provided in ED with CIWA protocol ordered. Patient requiring medical admission for further evaluation and treatment. Patient requiring admission for further evaluation and treatment. Discussed with Dr. Ibanez (hospitalist) who is in agreement with admission. Discussed findings and plan with patient, who acknowledges understanding and agreement. (MICHELLE BRINK DO) Dragon Disclaimer Dragon Disclaimer This electronic medical record was generated, in whole or in part, using a voice recognition dictation system. (ADELINA PRIETO APRN) Departure Departure Impression: Primary Impression: Acute alcohol intoxication Additional Impression: Chronic alcohol abuse Disposition: ADMITTED INPATIENT Admitting Physician: KARLOS Gould) (MICHELLE BRINK DO) Condition: GUARDED Referrals: KALPANA ROSE PA (PCP) Attending Signature Attending Signature I have personally interviewed and examined the patient. All charts, labs, and imaging studies were reviewed. I agree with the PA/DATABASE DBA's findings, exam, and plan. (MICHELLE BRINK DO) Problem Qualifiers Primary Impression: Acute alcohol intoxication Complication of substance-induced condition: uncomplicated Qualified Codes: F10.920 - Alcohol use, unspecified with intoxication, uncomplicated ADELINA PRIETO APRN May 13, 2019 21:07 MICHELLE BRINK DO May 14, 2019 02:38
[2019-05-13] MEDS ORDERED: ONDANSETRON PF 4 MG/2 ML VIAL. IV ONE (21:15)
[2019-05-13] MEDS ORDERED: MULTIVIT INFUSN,ADULT 4,VIT K 10 ML, THIAMINE INJ 100 MG, FOLIC ACID INJ 1 MG in IV NOR... IV ONE (21:30)
[2019-05-13 21:51] LABS: BASO # 0.1 x10^3/uL (0.0-0.2); BASO % 1 % (0-3); EOS # 0.2 x10^3/uL (0.0-0.7); EOS % 2 % (0-3); HEMATOCRIT 48.5 % (39.0-53.0); HEMOGLOBIN 16.8 g/dL (13.0-17.5); LYMPH # 5.1 x10^3/uL (1.0-4.8); LYMPH % 55 % (24-48); MEAN CORPUSCULAR HEMOGLOBIN 34 pg (25-35); MEAN CORPUSCULAR HGB CONC 35 g/dL (31-37); MEAN CORPUSCULAR VOLUME 97 fL (79-100); MONO # 0.8 x10^3/uL (0.0-1.1); MONO % 9 % (0-9); NEUT # 3.1 x10^3uL (1.8-7.7); NEUT % 33 % (31-73); PLATELET COUNT 341 x10^3/uL (140-400); RED BLOOD COUNT 4.99 x10^6/uL (4.30-5.70); RED CELL DISTRIBUTION WIDTH 15.6 % (11.5-14.5); WHITE BLOOD COUNT 9.3 x10^3/uL (4.0-11.0)
[2019-05-13 22:00] LABS: BARBITURATES NEG (NEG); BENZODIAZEPINES POS (NEG); CANNABINOIDS NEG (NEG); COCAINE NEG (NEG); METHADONE NEG (NEG); OPIATES NEG (NEG); PHENCYCLIDINE NEG (NEG)
[2019-05-13 22:01] LABS: AMPHETAMINE/METHAMPHETAMINE NEG (NEG)
[2019-05-13 22:03] LABS: CALCIUM 8.5 mg/dL (8.5-10.1); GFR 87.7; POTASSIUM 3.5 mmol/L (3.5-5.1)
[2019-05-13 22:06] LABS: % EOS 1 % (0-5); % LYMPHS 56 % (24-48); % MONOS 10 % (0-10); % SEGS 33 % (35-66)
[2019-05-13 22:07] LABS: PLT ESTIMATE ADEQUATE (ADEQUATE)
[2019-05-13 22:08] LABS: ALBUMIN 4.3 g/dL (3.4-5.0); TOTAL BILIRUBIN 0.3 mg/dL (0.2-1.0); TOTAL PROTEIN 8.5 g/dL (6.4-8.2)
[2019-05-13] MEDS ORDERED: DIPHTH,PERTUSS(ACELL),TET TOX 0.5 ML DISP.SYRIN. VAX IM ONE (22:45)
--- NOTE | 2019-05-13 23:14 | RAD ---
CT head, maxillofacial CT, and cervical spine without contrast History: Fall, alcoholic intoxication Technique: Noncontrast CT imaging was performed of the head, maxillofacial region, and cervical spine. Multiplanar reconstruction images are submitted. Exposure: One or more of the following individualized dose reduction techniques were utilized for this examination: 1. Automated exposure control 2. Adjustment of the mA and/or kV according to patient size 3. Use of iterative reconstruction technique. Head CT Comparison: July 31, 2015 Findings: No acute extra-axial or parenchymal hemorrhage is identified. There is no significant intra-axial mass effect, midline shift, or extra-axial fluid collection. The diaz-white differentiation of the major vascular territories is preserved. The ventricles, sulci, and cisterns are within normal limits in size and configuration. The mastoid air cells and the visualized paranasal sinuses are aerated. There is no significant focal calvarial abnormality. Impression: 1. No acute intracranial abnormality is identified. Cervical spine CT Comparison: None Findings: No acute cervical spine fracture is identified. Vertebral body stature and AP alignment are within normal limits. Atlanto-axial distance is within normal limits. There is appropriate alignment of lateral masses of C1 relative to C2. Occipital condylar-C1 relationship is maintained. There is multilevel cervical facet degenerative change. Impression: 1. No acute cervical spine fracture is identified. Maxillofacial CT: FINDINGS: There are no air-fluid levels of the paranasal sinuses. Mucosal thickening occludes right ostiomeatal unit. There is mild left maxillary sinus mucosal thickening inferiorly. No acute maxillofacial fracture is identified. IMPRESSION: 1. No acute maxillofacial fracture is identified. Electronically signed by: Bert Reed MD (05/13/2019 11:11 PM) [facility]
[2019-05-14] VITALS (7 sets, daily range): BP systolic 116–160; BP diastolic 62–116
[2019-05-14] MEDS ORDERED: ONDANSETRON PF 4 MG/2 ML VIAL. IV PRN (02:45)
[2019-05-14] MEDS: QUEtiapine 100 MG TABLET. PO SCH ×2 (04:27→21:48)
[2019-05-14] MEDS: NICOTINE 21MG PATCH. TD PRN ×2 (04:31→21:49)
--- NOTE | 2019-05-14 04:47 | NUR ---
Patient has a small scrape on the bridge of his nose from prior to admission. Patient is refusing pictures and wound care, states "they took care of it in the ER".
--- NOTE | 2019-05-14 05:31 | NUR ---
Patient requested to have no visitors or phone calls, states that it will "throw him off track". Patient did state that his mother, and friends know that he is here. This nurse informed the patient that we can only stop them at night when they have to check in through ER and advised not to give out his room number. Patient placed on confidential status, and security notified.
[2019-05-14] MEDS ORDERED: MULTIVIT INFUSN,ADULT 4,VIT K 10 ML, THIAMINE INJ 100 MG, FOLIC ACID INJ 1 MG in IV NOR... IV ONE (09:00)
--- NOTE | 2019-05-14 10:01 | PDOC1 ---
History and Physical Date of Admission Date of Admission DATE: 05/14/19 TIME: 09:59 Identification/Chief Complaint Chief Complaint SEEN IN ER, 28 year old male brought to the emergency department by his mother 05/14 with reports of alcohol intoxication and facial abrasions. Mother reports the patient vomited several times on his way to the emergency department. Patient admits to drinking approximately a fifth of 100 proof vodka today at home. Patient has abrasions to his forehead and the bridge of his nose with small laceration noted at the bridge of his nose. denies any loss of consciousness. Past Medical History Past Medical History Past Medical History Past Medical History: Alcoholism, Anxiety, Depression, Liver Disease, Renal Failure, Additional Past Medical Histor: seizures from ETOH withdraw; cirrhosis Additional Past Medical Histor: seizures from ETOH withdraw; cirrhosis Past Surgical History: Other Additional Past Surgical Histo: DIALYSIS PORT REMOVAL RIGHT CHEST Alcohol Use: Heavy Drug Use: Marijuana Allergies: Allergies: Coded Allergies: erythromycin base (Verified Allergy, Intermediate, Hives, 06/11/15) Family History: Family History: Alcoholism Social History: Social Hisoty: He smokes cigarettes and marijuana and drinks denies drugs Pulmonary: Bronchitis Hepatobiliary: Cirrhosis Renal/: Acute renal failure Past Surgical History Past Surgical History: Other Family History Family History: Hypertension Social History Smoke: No ALCOHOL: heavy Drugs: Marijuana Current Problem List Problem List Problems Medical Problems: (1) Chronic alcohol abuse Status: Acute Current Medications Current Medications Current Medications Ondansetron HCl (Zofran) 4 mg 1X ONCE IV Last administered on 05/13/19at 21:20; Start 05/13/19 at 21:15; Stop 05/13/19 at 21:16; Status DC Multivitamins 10 ml/Thiamine HCl 100 mg/Folic Acid 1 mg/Sodium Chloride 1,011.2 ml @ 1,000.088 mls/hr 1X ONCE IV Last administered on 05/13/19at 21:20; Start 05/13/19 at 21:30; Stop 05/13/19 at 22:30; Status DC Diphtheria/ Tetanus/Acell Pertussis (Boostrix) 0.5 ml ONCE ONCE VAX IM Last administered on 05/13/19at 23:06; Start 05/13/19 at 22:45; Stop 05/13/19 at 22:46; Status DC Lorazepam (Ativan Inj) 1 mg ONCE ONCE IV Last administered on 05/13/19at 23:05; Start 05/13/19 at 23:15; Stop 05/13/19 at 23:16; Status DC Ondansetron HCl (Zofran) 4 mg PRN Q8HRS PRN IV NAUSEA/VOMITING; Start 05/14/19 at 02:45; Stop 05/15/19 at 02:44 Lorazepam (Ativan Inj) 1 mg PRN Q1HR PRN IV For CIWA 8-14; Start 05/14/19 at 02:45; Stop 05/15/19 at 02:44 Lorazepam (Ativan Inj) 2 mg PRN Q1HR PRN IV For CIWA 15 or greater Last administered on 05/14/19at 08:38; Start 05/14/19 at 02:45; Stop 05/15/19 at 02:44 Lorazepam (Ativan Inj) 1 mg 1X ONCE IV Last administered on 05/14/19at 03:18; Start 05/14/19 at 02:45; Stop 05/14/19 at 02:46; Status DC Non-Formulary Medication (Quetiapine Fumarate (Seroquel)) 300 mg HS PO ; Start 05/14/19 at 21:00; Stop 05/14/19 at 21:00; Status DC Nicotine (Nicoderm Cq 21mg) 1 patch PRN DAILY PRN TD SMOKING CESSATION Last administered on 05/14/19at 04:31; Start 05/14/19 at 04:00 Multivitamins 10 ml/Thiamine HCl 100 mg/Folic Acid 1 mg/Sodium Chloride 1,011.2 ml @ 100 mls/ hr 1X ONCE IV Last administered on 05/14/19at 08:38; Start 05/14/19 at 09:00; Stop 05/14/19 at 19:06 Quetiapine Fumarate (SEROquel) 300 mg HS PO Last administered on 05/14/19at 04:27; Start 05/14/19 at 04:30 Active Scripts Active Ativan (Lorazepam) 0.5 Mg Tablet 0.5 Mg PO TID 5 Days Reported Cymbalta (Duloxetine Hcl) 20 Mg Capsule.dr 20 Mg PO BID Seroquel (Quetiapine Fumarate) 100 Mg Tablet 300 Mg PO HS Metoprolol Tartrate 50 Mg Tablet 50 Mg PO BID Clonazepam 1 Mg Tablet 1 Mg PO TID Clonidine Hcl 0.2 Mg Tablet 0.2 Mg PO TID PRN Allergies Allergies: Coded Allergies: erythromycin base (Verified Allergy, Intermediate, Hives, 06/11/15) ROS Review of System Review of Systems Review of Systems Constitutional: Denies fever or chills [] Eyes: Denies eye pain [] HENT: Denies nasal congestion or sore throat; see HPI[] Respiratory: Denies cough or shortness of breath [] Cardiovascular: No additional information not addressed in HPI [] GI: Denies abdominal pain; see HPI : Denies dysuria or hematuria [] Musculoskeletal: See HPI Integument: Denies rash or skin lesions [] Neurologic: Denies focal weakness or sensory changes; reports headache 14 PT systems were reviewed and found to be within normal limits, except as documented Physical Exam Physical Exam Constitutional: Well developed, well nourished, intoxicated HENT: Normocephalic, bilateral external ears normal, bilateral TMs normal, oropharynx moist, no oral exudates; superficial laceration < 0.5 cm to bridge of nose, no septal hematoma, no bleeding from nares Eyes: PERRLA, sluggish, conjunctiva normal, no discharge. [] Neck: supple, no stridor. [] Cardiovascular:Heart rate regular rhythm, no murmur [] Lungs & Thorax: Bilateral breath sounds clear to auscultation [] Abdomen: Bowel sounds normal, soft, no tenderness, no masses, no pulsatile masses. [] Skin: Warm, dry, no erythema, no rash. [] Extremities: No tenderness, no cyanosis, no clubbing, ROM intact, no edema. [] Neurologic: Alert and oriented X 2, normal motor function, normal sensory function, no focal deficits noted. [] Psychologic: Affect agitated, judgement impaired, mood normal. General: Alert, Oriented X3 Heart: RRR Abdomen: Normal bowel sounds, Soft Rectal Exam: not examined Extremities: No cyanosis Neuro: Cranial nerves 3-12 NL Vitals Vitals Vital Signs Date Time Temp Pulse Resp B/P (MAP) Pulse Ox O2 Delivery O2 Flow Rate FiO2 05/14/19 04:05 Room Air 05/14/19 03:59 97.5 87 18 123/62 (82) 94 97.5 Labs Labs Laboratory Tests Test 05/13/19 21:00 05/13/19 21:40 White Blood Count 9.3 x10^3/uL (4.0-11.0) Red Blood Count 4.99 x10^6/uL (4.30-5.70) Hemoglobin 16.8 g/dL (13.0-17.5) Hematocrit 48.5 % (39.0-53.0) Mean Corpuscular Volume 97 fL (79-100) Mean Corpuscular Hemoglobin 34 pg (25-35) Mean Corpuscular Hemoglobin Concent 35 g/dL (31-37) Red Cell Distribution Width 15.6 % (11.5-14.5) Platelet Count 341 x10^3/uL (140-400) Neutrophils (%) (Auto) 33 % (31-73) Lymphocytes (%) (Auto) 55 % (24-48) Monocytes (%) (Auto) 9 % (0-9) Eosinophils (%) (Auto) 2 % (0-3) Basophils (%) (Auto) 1 % (0-3) Neutrophils # (Auto) 3.1 x10^3uL (1.8-7.7) Lymphocytes # (Auto) 5.1 x10^3/uL (1.0-4.8) Monocytes # (Auto) 0.8 x10^3/uL (0.0-1.1) Eosinophils # (Auto) 0.2 x10^3/uL (0.0-0.7) Basophils # (Auto) 0.1 x10^3/uL (0.0-0.2) Segmented Neutrophils % 33 % (35-66) Lymphocytes % 56 % (24-48) Monocytes % 10 % (0-10) Eosinophils % 1 % (0-5) Platelet Estimate Adequate (ADEQUATE) Sodium Level 146 mmol/L (136-145) Potassium Level 3.5 mmol/L (3.5-5.1) Chloride Level 106 mmol/L (98-107) Carbon Dioxide Level 24 mmol/L (21-32) Anion Gap 16 (6-14) Blood Urea Nitrogen 6 mg/dL (8-26) Creatinine 1.0 mg/dL (0.7-1.3) Estimated GFR (Cockcroft-Gault) 87.7 BUN/Creatinine Ratio 6 (6-20) Glucose Level 97 mg/dL (70-99) Calcium Level 8.5 mg/dL (8.5-10.1) Total Bilirubin 0.3 mg/dL (0.2-1.0) Aspartate Amino Transf (AST/SGOT) 64 U/L (15-37) Alanine Aminotransferase (ALT/SGPT) 91 U/L (16-63) Alkaline Phosphatase 144 U/L (46-116) Total Protein 8.5 g/dL (6.4-8.2) Albumin 4.3 g/dL (3.4-5.0) Albumin/Globulin Ratio 1.0 (1.0-1.7) Ethyl Alcohol Level 336 mg/dL (0-10) Urine Opiates Screen Neg (NEG) Urine Methadone Screen Neg (NEG) Urine Barbiturates Neg (NEG) Urine Phencyclidine Screen Neg (NEG) Urine Amphetamine/Methamphetamine Neg (NEG) Urine Benzodiazepines Screen Pos (NEG) Urine Cocaine Screen Neg (NEG) Urine Cannabinoids Screen Neg (NEG) Urine Ethyl Alcohol Pos (NEG) Laboratory Tests Test 05/13/19 21:00 05/13/19 21:40 White Blood Count 9.3 x10^3/uL (4.0-11.0) Red Blood Count 4.99 x10^6/uL (4.30-5.70) Hemoglobin 16.8 g/dL (13.0-17.5) Hematocrit 48.5 % (39.0-53.0) Mean Corpuscular Volume 97 fL (79-100) Mean Corpuscular Hemoglobin 34 pg (25-35) Mean Corpuscular Hemoglobin Concent 35 g/dL (31-37) Red Cell Distribution Width 15.6 % (11.5-14.5) Platelet Count 341 x10^3/uL (140-400) Neutrophils (%) (Auto) 33 % (31-73) Lymphocytes (%) (Auto) 55 % (24-48) Monocytes (%) (Auto) 9 % (0-9) Eosinophils (%) (Auto) 2 % (0-3) Basophils (%) (Auto) 1 % (0-3) Neutrophils # (Auto) 3.1 x10^3uL (1.8-7.7) Lymphocytes # (Auto) 5.1 x10^3/uL (1.0-4.8) Monocytes # (Auto) 0.8 x10^3/uL (0.0-1.1) Eosinophils # (Auto) 0.2 x10^3/uL (0.0-0.7) Basophils # (Auto) 0.1 x10^3/uL (0.0-0.2) Segmented Neutrophils % 33 % (35-66) Lymphocytes % 56 % (24-48) Monocytes % 10 % (0-10) Eosinophils % 1 % (0-5) Platelet Estimate Adequate (ADEQUATE) Sodium Level 146 mmol/L (136-145) Potassium Level 3.5 mmol/L (3.5-5.1) Chloride Level 106 mmol/L (98-107) Carbon Dioxide Level 24 mmol/L (21-32) Anion Gap 16 (6-14) Blood Urea Nitrogen 6 mg/dL (8-26) Creatinine 1.0 mg/dL (0.7-1.3) Estimated GFR (Cockcroft-Gault) 87.7 BUN/Creatinine Ratio 6 (6-20) Glucose Level 97 mg/dL (70-99) Calcium Level 8.5 mg/dL (8.5-10.1) Total Bilirubin 0.3 mg/dL (0.2-1.0) Aspartate Amino Transf (AST/SGOT) 64 U/L (15-37) Alanine Aminotransferase (ALT/SGPT) 91 U/L (16-63) Alkaline Phosphatase 144 U/L (46-116) Total Protein 8.5 g/dL (6.4-8.2) Albumin 4.3 g/dL (3.4-5.0) Albumin/Globulin Ratio 1.0 (1.0-1.7) Ethyl Alcohol Level 336 mg/dL (0-10) Urine Opiates Screen Neg (NEG) Urine Methadone Screen Neg (NEG) Urine Barbiturates Neg (NEG) Urine Phencyclidine Screen Neg (NEG) Urine Amphetamine/Methamphetamine Neg (NEG) Urine Benzodiazepines Screen Pos (NEG) Urine Cocaine Screen Neg (NEG) Urine Cannabinoids Screen Neg (NEG) Urine Ethyl Alcohol Pos (NEG) Images Images SEX: M EXAM STATUS: REG ER ORD. PHYSICIAN: ADELINA PRIETO APRN REASON: fall, alcohol intoxication, possible LOC PROCEDURE: CT HEAD AND CERVICAL SPINE WO CT head, maxillofacial CT, and cervical spine without contrast History: Fall, alcoholic intoxication Technique: Noncontrast CT imaging was performed of the head, maxillofacial region, and cervical spine. Multiplanar reconstruction images are submitted. Exposure: One or more of the following individualized dose reduction techniques were utilized for this examination: 1. Automated exposure control 2. Adjustment of the mA and/or kV according to patient size 3. Use of iterative reconstruction technique. Head CT Comparison: July 31, 2015 Findings: No acute extra-axial or parenchymal hemorrhage is identified. There is no significant intra-axial mass effect, midline shift, or extra-axial fluid collection. The diaz-white differentiation of the major vascular territories is preserved. The ventricles, sulci, and cisterns are within normal limits in size and configuration. The mastoid air cells and the visualized paranasal sinuses are aerated. There is no significant focal calvarial abnormality. Impression: 1. No acute intracranial abnormality is identified. Cervical spine CT Comparison: None Findings: No acute cervical spine fracture is identified. Vertebral body stature and AP alignment are within normal limits. Atlanto-axial distance is within normal limits. There is appropriate alignment of lateral masses of C1 relative to C2. Occipital condylar-C1 relationship is maintained. There is multilevel cervical facet degenerative change. Impression: 1. No acute cervical spine fracture is identified. Maxillofacial CT: FINDINGS: There are no air-fluid levels of the paranasal sinuses. Mucosal thickening occludes right ostiomeatal unit. There is mild left maxillary sinus mucosal thickening inferiorly. No acute maxillofacial fracture is identified. IMPRESSION: 1. No acute maxillofacial fracture is identified. Electronically signed by: Bert Westbrook MD (05/13/2019 11:11 PM) [facility] DICTATED and SIGNED BY: BERT WESTBROOK MD DATE: 05/13/19 5117 VTE Prophylaxis Ordered VTE Prophylaxis Devices: Yes VTE Pharmacological Prophylaxi: Yes Assessment/Plan Assessment/Plan Assessment/Plan Severe alcohol withdrawal altered mental status obesity THC abuse facial trauma from fall No acute maxillofacial fracture is identified. Plan neurology consult seizure precautions Alcohol withdrawal protocol /// alcohol rehabilitation Home meds DVT prophylaxis Full code IV fluids and banana bag When necessary benzos PER PROTOCOL Multiple vitamins prognosis is poor ////NEEDS AA Daily meetings 76 min pt exam, chart review, > 50% of time spent with exam, chart review, pt care coordination FULBRIGHT,LAURA W MD May 14, 2019 10:01
--- NOTE | 2019-05-14 15:01 | PDOC2 ---
CONSULT Date of Consult Date of Consult DATE: 05/14/19 TIME: 15:00 Reason for Consult Reason for Consult: Altered mental status Identification/Chief Complaint Chief Complaint Altered mental status History of Present Illness Reason for Visit: This patient is 28-year-old man who was brought to the emergency room with reports of excessive alcohol drinking, alcohol intoxication . Patient was having some nausea or vomiting on presentation patient admits to drink liquor, patient denies any complaint of difficulty with speaking, numbness on the face. Patient denies any focal extremity weakness. Past Medical History Pulmonary: Bronchitis Hepatobiliary: Cirrhosis Renal/: Acute renal failure Past Surgical History Past Surgical History: Other Family History Family History: Hypertension Social History No ALCOHOL: heavy Drugs: Marijuana Current Problem List Problem List Problems Medical Problems: (1) Chronic alcohol abuse Status: Acute Current Medications Current Medications Current Medications Ondansetron HCl (Zofran) 4 mg 1X ONCE IV Last administered on 05/13/19at 21:20; Start 05/13/19 at 21:15; Stop 05/13/19 at 21:16; Status DC Multivitamins 10 ml/Thiamine HCl 100 mg/Folic Acid 1 mg/Sodium Chloride 1,011.2 ml @ 1,000.088 mls/hr 1X ONCE IV Last administered on 05/13/19at 21:20; Start 05/13/19 at 21:30; Stop 05/13/19 at 22:30; Status DC Diphtheria/ Tetanus/Acell Pertussis (Boostrix) 0.5 ml ONCE ONCE VAX IM Last administered on 05/13/19at 23:06; Start 05/13/19 at 22:45; Stop 05/13/19 at 22:46; Status DC Lorazepam (Ativan Inj) 1 mg ONCE ONCE IV Last administered on 05/13/19at 23:05; Start 05/13/19 at 23:15; Stop 05/13/19 at 23:16; Status DC Ondansetron HCl (Zofran) 4 mg PRN Q8HRS PRN IV NAUSEA/VOMITING; Start 05/14/19 at 02:45; Stop 05/15/19 at 02:44 Lorazepam (Ativan Inj) 1 mg PRN Q1HR PRN IV For CIWA 8-14; Start 05/14/19 at 02:45; Stop 05/15/19 at 02:44 Lorazepam (Ativan Inj) 2 mg PRN Q1HR PRN IV For CIWA 15 or greater Last administered on 05/14/19at 12:24; Start 05/14/19 at 02:45; Stop 05/15/19 at 02:44 Lorazepam (Ativan Inj) 1 mg 1X ONCE IV Last administered on 05/14/19at 03:18; Start 05/14/19 at 02:45; Stop 05/14/19 at 02:46; Status DC Non-Formulary Medication (Quetiapine Fumarate (Seroquel)) 300 mg HS PO ; Start 05/14/19 at 21:00; Stop 05/14/19 at 21:00; Status DC Nicotine (Nicoderm Cq 21mg) 1 patch PRN DAILY PRN TD SMOKING CESSATION Last administered on 05/14/19at 04:31; Start 05/14/19 at 04:00 Multivitamins 10 ml/Thiamine HCl 100 mg/Folic Acid 1 mg/Sodium Chloride 1,011.2 ml @ 100 mls/ hr 1X ONCE IV Last administered on 05/14/19at 08:38; Start 05/14/19 at 09:00; Stop 05/14/19 at 19:06 Quetiapine Fumarate (SEROquel) 300 mg HS PO Last administered on 05/14/19at 04:27; Start 05/14/19 at 04:30 Active Scripts Active Ativan (Lorazepam) 0.5 Mg Tablet 0.5 Mg PO TID 5 Days Reported Cymbalta (Duloxetine Hcl) 20 Mg Capsule.dr 20 Mg PO BID Seroquel (Quetiapine Fumarate) 100 Mg Tablet 300 Mg PO HS Metoprolol Tartrate 50 Mg Tablet 50 Mg PO BID Clonazepam 1 Mg Tablet 1 Mg PO TID Clonidine Hcl 0.2 Mg Tablet 0.2 Mg PO TID PRN Allergies Allergies: Coded Allergies: erythromycin base (Verified Allergy, Intermediate, Hives, 06/11/15) Physical Exam Physical Exam General no acute distress. HEENT: Normocephalic and atraumatic. NECK: Supple without bruit Respiratory: Clear to auscultation bilaterally Heart: Regular rate and rhythm, S1S2 normal NEUROLOGIC: Mental status Alert oriented. Cranial nerve equally reactive pupils, and intact extraocular movements. No facial asymmetry. Palate elevates and tongue protrudes in midline. Reflexes are 1-2 with flexor plantar responses. Coordination no dysmetria Strength able to move all exts equally. Sensory exam is intact for light touch and pinprick. Gait in bed. Vitals VITALS Vital Signs Date Time Temp Pulse Resp B/P (MAP) Pulse Ox O2 Delivery O2 Flow Rate FiO2 05/14/19 11:40 97.3 105 20 156/99 (118) 97 Room Air 97.3 Labs Labs Laboratory Tests Test 05/13/19 21:00 05/13/19 21:40 White Blood Count 9.3 x10^3/uL (4.0-11.0) Red Blood Count 4.99 x10^6/uL (4.30-5.70) Hemoglobin 16.8 g/dL (13.0-17.5) Hematocrit 48.5 % (39.0-53.0) Mean Corpuscular Volume 97 fL (79-100) Mean Corpuscular Hemoglobin 34 pg (25-35) Mean Corpuscular Hemoglobin Concent 35 g/dL (31-37) Red Cell Distribution Width 15.6 % (11.5-14.5) Platelet Count 341 x10^3/uL (140-400) Neutrophils (%) (Auto) 33 % (31-73) Lymphocytes (%) (Auto) 55 % (24-48) Monocytes (%) (Auto) 9 % (0-9) Eosinophils (%) (Auto) 2 % (0-3) Basophils (%) (Auto) 1 % (0-3) Neutrophils # (Auto) 3.1 x10^3uL (1.8-7.7) Lymphocytes # (Auto) 5.1 x10^3/uL (1.0-4.8) Monocytes # (Auto) 0.8 x10^3/uL (0.0-1.1) Eosinophils # (Auto) 0.2 x10^3/uL (0.0-0.7) Basophils # (Auto) 0.1 x10^3/uL (0.0-0.2) Segmented Neutrophils % 33 % (35-66) Lymphocytes % 56 % (24-48) Monocytes % 10 % (0-10) Eosinophils % 1 % (0-5) Platelet Estimate Adequate (ADEQUATE) Sodium Level 146 mmol/L (136-145) Potassium Level 3.5 mmol/L (3.5-5.1) Chloride Level 106 mmol/L (98-107) Carbon Dioxide Level 24 mmol/L (21-32) Anion Gap 16 (6-14) Blood Urea Nitrogen 6 mg/dL (8-26) Creatinine 1.0 mg/dL (0.7-1.3) Estimated GFR (Cockcroft-Gault) 87.7 BUN/Creatinine Ratio 6 (6-20) Glucose Level 97 mg/dL (70-99) Calcium Level 8.5 mg/dL (8.5-10.1) Total Bilirubin 0.3 mg/dL (0.2-1.0) Aspartate Amino Transf (AST/SGOT) 64 U/L (15-37) Alanine Aminotransferase (ALT/SGPT) 91 U/L (16-63) Alkaline Phosphatase 144 U/L (46-116) Total Protein 8.5 g/dL (6.4-8.2) Albumin 4.3 g/dL (3.4-5.0) Albumin/Globulin Ratio 1.0 (1.0-1.7) Ethyl Alcohol Level 336 mg/dL (0-10) Urine Opiates Screen Neg (NEG) Urine Methadone Screen Neg (NEG) Urine Barbiturates Neg (NEG) Urine Phencyclidine Screen Neg (NEG) Urine Amphetamine/Methamphetamine Neg (NEG) Urine Benzodiazepines Screen Pos (NEG) Urine Cocaine Screen Neg (NEG) Urine Cannabinoids Screen Neg (NEG) Urine Ethyl Alcohol Pos (NEG) Laboratory Tests Test 05/13/19 21:00 05/13/19 21:40 White Blood Count 9.3 x10^3/uL (4.0-11.0) Red Blood Count 4.99 x10^6/uL (4.30-5.70) Hemoglobin 16.8 g/dL (13.0-17.5) Hematocrit 48.5 % (39.0-53.0) Mean Corpuscular Volume 97 fL (79-100) Mean Corpuscular Hemoglobin 34 pg (25-35) Mean Corpuscular Hemoglobin Concent 35 g/dL (31-37) Red Cell Distribution Width 15.6 % (11.5-14.5) Platelet Count 341 x10^3/uL (140-400) Neutrophils (%) (Auto) 33 % (31-73) Lymphocytes (%) (Auto) 55 % (24-48) Monocytes (%) (Auto) 9 % (0-9) Eosinophils (%) (Auto) 2 % (0-3) Basophils (%) (Auto) 1 % (0-3) Neutrophils # (Auto) 3.1 x10^3uL (1.8-7.7) Lymphocytes # (Auto) 5.1 x10^3/uL (1.0-4.8) Monocytes # (Auto) 0.8 x10^3/uL (0.0-1.1) Eosinophils # (Auto) 0.2 x10^3/uL (0.0-0.7) Basophils # (Auto) 0.1 x10^3/uL (0.0-0.2) Segmented Neutrophils % 33 % (35-66) Lymphocytes % 56 % (24-48) Monocytes % 10 % (0-10) Eosinophils % 1 % (0-5) Platelet Estimate Adequate (ADEQUATE) Sodium Level 146 mmol/L (136-145) Potassium Level 3.5 mmol/L (3.5-5.1) Chloride Level 106 mmol/L (98-107) Carbon Dioxide Level 24 mmol/L (21-32) Anion Gap 16 (6-14) Blood Urea Nitrogen 6 mg/dL (8-26) Creatinine 1.0 mg/dL (0.7-1.3) Estimated GFR (Cockcroft-Gault) 87.7 BUN/Creatinine Ratio 6 (6-20) Glucose Level 97 mg/dL (70-99) Calcium Level 8.5 mg/dL (8.5-10.1) Total Bilirubin 0.3 mg/dL (0.2-1.0) Aspartate Amino Transf (AST/SGOT) 64 U/L (15-37) Alanine Aminotransferase (ALT/SGPT) 91 U/L (16-63) Alkaline Phosphatase 144 U/L (46-116) Total Protein 8.5 g/dL (6.4-8.2) Albumin 4.3 g/dL (3.4-5.0) Albumin/Globulin Ratio 1.0 (1.0-1.7) Ethyl Alcohol Level 336 mg/dL (0-10) Urine Opiates Screen Neg (NEG) Urine Methadone Screen Neg (NEG) Urine Barbiturates Neg (NEG) Urine Phencyclidine Screen Neg (NEG) Urine Amphetamine/Methamphetamine Neg (NEG) Urine Benzodiazepines Screen Pos (NEG) Urine Cocaine Screen Neg (NEG) Urine Cannabinoids Screen Neg (NEG) Urine Ethyl Alcohol Pos (NEG) Assessment/Plan Assessment/Plan This patient is 28-year-old man who was brought to the emergency room with reports of excessive alcohol drinking, alcohol intoxication. Patient was having some nausea or vomiting on presentation patient admits to drink liquor, patient denies any complaint of difficulty with speaking, numbness on the face. Patient denies any focal extremity weakness. 28-year-old man with a history of alcohol usage, alcohol withdrawal with encephalopathy, improving, alcohol precautions, alcohol withdrawal protocol, thiamine, patient had CT scan done on the brain which did not show any evidence of acute intracranial etiology. No evidence of acute hemorrhage or mass noted. CT cervical spine did not show any evidence of trauma. Patient reports to be back to baseline. He will follow up in neurology clinic. Seizure precautions discussed in detail. TIERRA CRANE MD May 14, 2019 15:01
[2019-05-14] MEDS ORDERED: ACET325T21 PO (16:57)
[2019-05-14] MEDS ORDERED: cloNIDine HCL 0.2 MG TABLET PO PRN (17:00)
[2019-05-14] MEDS: DULoxetine HCL 20 MG CAPSULE.DR PO SCH (19:40)
[2019-05-14] MEDS: METOPROLOL TART IMMED RELEASE 50 MG TABLET. PO SCH (19:40)
[2019-05-14] MEDS ORDERED: ACETAMINOPHEN 325 MG TABLET. PO PRN (19:45)
[2019-05-14] MEDS ORDERED: ACETAMINOPHEN 500 MG TABLET PO ONE (19:50)
[2019-05-14] MEDS ORDERED: NON FORMULARY ITEM (Quetiapine Fumarate (Seroquel) 300 MG) PO SCH (21:00)
[2019-05-15 02:45] VITALS: BP 133/89
[2019-05-15 07:45] VITALS: BP 157/92
[2019-05-15] MEDS: METOPROLOL TART IMMED RELEASE 50 MG TABLET. PO SCH (08:29)
[2019-05-15] MEDS: DULoxetine HCL 20 MG CAPSULE.DR PO SCH (08:29)
[2019-05-15 11:03] VITALS: BP 159/111
--- NOTE | 2019-05-15 11:38 | PDOC ---
PROGRESS NOTES History of Present Illness History of Present Illness VTE Prophylaxis Ordered VTE Prophylaxis Devices: Yes VTE Pharmacological Prophylaxi: Yes Assessment/Plan Assessment/Plan Assessment/Plan Severe alcohol withdrawal altered mental status obesity, morbid THC abuse facial trauma from fall No acute maxillofacial fracture is identified. VERY AGITATED, TREMORS LAST NIGH, REQUIRED IV ATIVAN 3 MG Q 2 HRS Plan neurology consult seizure precautions Alcohol withdrawal protocol /// alcohol rehabilitation Home meds DVT prophylaxis Full code IV fluids and banana bag When necessary benzos PER PROTOCOL Multiple vitamins prognosis is poor ////NEEDS AA Daily meetings 36 min pt exam, chart review, > 50% of time spent with exam, chart review, pt care coordination Vitals Vitals Vital Signs Date Time Temp Pulse Resp B/P (MAP) Pulse Ox O2 Delivery O2 Flow Rate FiO2 05/15/19 11:03 98.2 127 18 159/111 (127) 96 Room Air 98.2 Physical Exam Physical Exam HENT: Normocephalic, bilateral external ears normal, bilateral TMs normal, oropharynx moist, no oral exudates; superficial laceration < 0.5 cm to bridge of nose, no septal hematoma, no bleeding from nares Eyes: PERRLA, sluggish, conjunctiva normal, no discharge. [] Neck: supple, no stridor. [] Cardiovascular:Heart rate regular rhythm, no murmur [] Lungs & Thorax: Bilateral breath sounds clear to auscultation [] Abdomen: Bowel sounds normal, soft, no tenderness, no masses, no pulsatile masses. [] Skin: Warm, dry, no erythema, no rash. [] Extremities: No tenderness, no cyanosis, no clubbing, ROM intact, no edema. [] Neurologic: Alert and oriented X 2, normal motor function, normal sensory function, no focal deficits noted. [] Psychologic: Affect agitated, judgement impaired, mood normal. General: Alert, Oriented X3 Heart: RRR Abdomen: Normal bowel sounds, Soft Rectal Exam: not examined Extremities: No cyanosis Neuro: Cranial nerves 3-12 NL General: Alert, Oriented X3, Cooperative, No acute distress Heart: Regular rate Lungs: Clear, Other Abdomen: Normal bowel sounds, Soft Extremities: No cyanosis Assessment and Plan Assessmemt and Plan Problems Medical Problems: (1) Chronic alcohol abuse Status: Acute Comment Review of Relevant I have reviewed the following items yessica (where applicable) has been applied. Labs Laboratory Tests Test 05/13/19 21:00 05/13/19 21:40 White Blood Count 9.3 x10^3/uL (4.0-11.0) Red Blood Count 4.99 x10^6/uL (4.30-5.70) Hemoglobin 16.8 g/dL (13.0-17.5) Hematocrit 48.5 % (39.0-53.0) Mean Corpuscular Volume 97 fL (79-100) Mean Corpuscular Hemoglobin 34 pg (25-35) Mean Corpuscular Hemoglobin Concent 35 g/dL (31-37) Red Cell Distribution Width 15.6 % (11.5-14.5) Platelet Count 341 x10^3/uL (140-400) Neutrophils (%) (Auto) 33 % (31-73) Lymphocytes (%) (Auto) 55 % (24-48) Monocytes (%) (Auto) 9 % (0-9) Eosinophils (%) (Auto) 2 % (0-3) Basophils (%) (Auto) 1 % (0-3) Neutrophils # (Auto) 3.1 x10^3uL (1.8-7.7) Lymphocytes # (Auto) 5.1 x10^3/uL (1.0-4.8) Monocytes # (Auto) 0.8 x10^3/uL (0.0-1.1) Eosinophils # (Auto) 0.2 x10^3/uL (0.0-0.7) Basophils # (Auto) 0.1 x10^3/uL (0.0-0.2) Segmented Neutrophils % 33 % (35-66) Lymphocytes % 56 % (24-48) Monocytes % 10 % (0-10) Eosinophils % 1 % (0-5) Platelet Estimate Adequate (ADEQUATE) Sodium Level 146 mmol/L (136-145) Potassium Level 3.5 mmol/L (3.5-5.1) Chloride Level 106 mmol/L (98-107) Carbon Dioxide Level 24 mmol/L (21-32) Anion Gap 16 (6-14) Blood Urea Nitrogen 6 mg/dL (8-26) Creatinine 1.0 mg/dL (0.7-1.3) Estimated GFR (Cockcroft-Gault) 87.7 BUN/Creatinine Ratio 6 (6-20) Glucose Level 97 mg/dL (70-99) Calcium Level 8.5 mg/dL (8.5-10.1) Total Bilirubin 0.3 mg/dL (0.2-1.0) Aspartate Amino Transf (AST/SGOT) 64 U/L (15-37) Alanine Aminotransferase (ALT/SGPT) 91 U/L (16-63) Alkaline Phosphatase 144 U/L (46-116) Total Protein 8.5 g/dL (6.4-8.2) Albumin 4.3 g/dL (3.4-5.0) Albumin/Globulin Ratio 1.0 (1.0-1.7) Ethyl Alcohol Level 336 mg/dL (0-10) Urine Opiates Screen Neg (NEG) Urine Methadone Screen Neg (NEG) Urine Barbiturates Neg (NEG) Urine Phencyclidine Screen Neg (NEG) Urine Amphetamine/Methamphetamine Neg (NEG) Urine Benzodiazepines Screen Pos (NEG) Urine Cocaine Screen Neg (NEG) Urine Cannabinoids Screen Neg (NEG) Urine Ethyl Alcohol Pos (NEG) Medications Current Medications Ondansetron HCl (Zofran) 4 mg 1X ONCE IV Last administered on 05/13/19at 21:20; Start 05/13/19 at 21:15; Stop 05/13/19 at 21:16; Status DC Multivitamins 10 ml/Thiamine HCl 100 mg/Folic Acid 1 mg/Sodium Chloride 1,011.2 ml @ 1,000.088 mls/hr 1X ONCE IV Last administered on 05/13/19at 21:20; Start 05/13/19 at 21:30; Stop 05/13/19 at 22:30; Status DC Diphtheria/ Tetanus/Acell Pertussis (Boostrix) 0.5 ml ONCE ONCE VAX IM Last administered on 05/13/19at 23:06; Start 05/13/19 at 22:45; Stop 05/13/19 at 22:46; Status DC Lorazepam (Ativan Inj) 1 mg ONCE ONCE IV Last administered on 05/13/19at 23:05; Start 05/13/19 at 23:15; Stop 05/13/19 at 23:16; Status DC Ondansetron HCl (Zofran) 4 mg PRN Q8HRS PRN IV NAUSEA/VOMITING; Start 05/14/19 at 02:45; Stop 05/15/19 at 02:45; Status DC Lorazepam (Ativan Inj) 1 mg PRN Q1HR PRN IV For CIWA 8-14; Start 05/14/19 at 02:45; Stop 05/15/19 at 02:45; Status DC Lorazepam (Ativan Inj) 2 mg PRN Q1HR PRN IV For CIWA 15 or greater Last administered on 05/14/19at 19:40; Start 05/14/19 at 02:45; Stop 05/15/19 at 02:45; Status DC Lorazepam (Ativan Inj) 1 mg 1X ONCE IV Last administered on 05/14/19at 03:18; Start 05/14/19 at 02:45; Stop 05/14/19 at 02:46; Status DC Non-Formulary Medication (Quetiapine Fumarate (Seroquel)) 300 mg HS PO ; Start 05/14/19 at 21:00; Stop 05/14/19 at 21:00; Status DC Nicotine (Nicoderm Cq 21mg) 1 patch PRN DAILY PRN TD SMOKING CESSATION Last administered on 05/14/19at 21:49; Start 05/14/19 at 04:00 Multivitamins 10 ml/Thiamine HCl 100 mg/Folic Acid 1 mg/Sodium Chloride 1,011.2 ml @ 100 mls/ hr 1X ONCE IV Last administered on 05/14/19at 08:38; Start at 09:00; Stop 05/14/19 at 19:06; Status DC Quetiapine Fumarate (SEROquel) 300 mg HS PO Last administered on 05/14/19at 21:48; Start 05/14/19 at 04:30 Clonidine HCl (Catapres) 0.2 mg PRN TID PRN PO HYPERTENSION; Start 05/14/19 at 17:00 Metoprolol Tartrate (Lopressor) 50 mg BID PO Last administered on 05/15/19at 08:29; Start 05/14/19 at 21:00 Duloxetine HCl (Cymbalta) 20 mg BID PO Last administered on 05/15/19at 08:29; Start 05/14/19 at 21:00 Lorazepam (Ativan Inj) 3 mg PRN Q1HR PRN IV ANXIETY / AGITATION Last administered on 05/15/19at 08:30; Start 05/14/19 at 17:00 Acetaminophen (Tylenol) 650 mg PRN Q6HRS PRN PO MODERATE PAIN 4-6 Last administered on 05/14/19at 19:53; Start 05/14/19 at 19:45 Acetaminophen (Tylenol) 500 mg STK-MED ONCE PO ; Start 05/14/19 at 19:50; Stop 05/14/19 at 19:51; Status DC Active Scripts Active Ativan (Lorazepam) 0.5 Mg Tablet 0.5 Mg PO TID 5 Days Reported Acetaminophen 325 Mg Tablet 650 Mg PO Q6HRS Cymbalta (Duloxetine Hcl) 20 Mg Capsule.dr 20 Mg PO BID Seroquel (Quetiapine Fumarate) 100 Mg Tablet 300 Mg PO HS Metoprolol Tartrate 50 Mg Tablet 50 Mg PO BID Clonazepam 1 Mg Tablet 1 Mg PO TID Clonidine Hcl 0.2 Mg Tablet 0.2 Mg PO TID PRN Vitals/I & O Vital Sign - Last 24 Hours 05/14/19 05/14/19 05/14/19 05/14/19 11:40 15:05 19:30 19:40 Temp 97.3 98.7 98.7 97.3 98.7 98.7 Pulse 105 121 106 121 Resp 20 20 20 B/P (MAP) 156/99 (118) 116/65 (82) 160/116 (131) 116/65 Pulse Ox 97 97 98 O2 Delivery Room Air Room Air Room Air 05/14/19 05/14/19 05/14/19 05/15/19 20:00 20:54 22:50 02:45 Temp 98.7 98.2 97.3 98.7 98.2 97.3 Pulse 106 79 70 Resp 20 20 18 B/P (MAP) 160/116 (131) 119/74 (89) 133/89 (104) Pulse Ox 98 95 96 O2 Delivery Room Air Room Air Room Air Room Air 05/15/19 05/15/19 05/15/19 07:45 08:29 11:03 Temp 98.0 98.2 98.0 98.2 Pulse 113 113 127 Resp 18 18 B/P (MAP) 157/92 (113) 157/92 159/111 (127) Pulse Ox 97 96 O2 Delivery Room Air Room Air Intake and Output 05/14/19 05/14/1905/15/19 14:59 22:59 06:59 Intake Total 760 ml 300 ml 550 ml Balance 760 ml 300 ml 550 ml LAURA WOO MD May 15, 2019 11:38
[2019-05-15 15:05] VITALS: BP 85/57
--- NOTE | 2019-05-15 17:10 | NUR ---
Pt decided to leave AMA. I discussed and length with pt the risk of him leaving and discussed the meds he has been taking. He said it was more important to go home and prepare for rehab. I encouraged him to stay until tomorrow and be seen by Dr in the morning but he refused. Saline lock was removed and pt escorted out by staff and security.
[2019-05-16] MEDS ORDERED: MULTIVITAMIN with MINERAL TABLET. PO SCH (09:00)
[2019-05-16] MEDS ORDERED: THIAMINE 100 MG TABLET. PO SCH (09:00)
--- NOTE | 2019-05-16 19:53 | PDOC3 ---
Discharge Summary Date of Admission: May 13, 2019 Date of Discharge: May 15, 2019 Follow-Up: 3-5 days Admitting Diagnosis comment: TE Prophylaxis Ordered VTE Prophylaxis Devices: Yes VTE Pharmacological Prophylaxi: Yes Assessment/Plan Assessment/Plan DISCHARGE DX LEFT AMA Severe alcohol withdrawal altered mental status obesity, morbid THC abuse facial trauma from fall No acute maxillofacial fracture is identified. VERY AGITATED, TREMORS LAST NIGH, REQUIRED IV ATIVAN 3 MG Q 2 HRS Plan neurology consult seizure precautions Alcohol withdrawal protocol /// alcohol rehabilitation Home meds DVT prophylaxis Full code IV fluids and banana bag When necessary benzos PER PROTOCOL Multiple vitamins prognosis is poor ////NEEDS AA Daily meetings 36 min pt exam, chart review D/C PLANNING , > 50% of time spent with exam, chart review, pt care coordination Vitals Vitals Vital Signs Date Time Temp Pulse Resp B/P (MAP) Pulse Ox O2 Delivery O2 Flow Rate FiO2 05/15/19 11:03 98.2 127 18 159/111 (127) 96 Room Air 98.2 Physical Exam Physical Exam HENT: Normocephalic, bilateral external ears normal, bilateral TMs normal, oropharynx moist, no oral exudates; superficial laceration < 0.5 cm to bridge of nose, no septal hematoma, no bleeding from nares Eyes: PERRLA, sluggish, conjunctiva normal, no discharge. [] Neck: supple, no stridor. [] Cardiovascular:Heart rate regular rhythm, no murmur [] Lungs & Thorax: Bilateral breath sounds clear to auscultation [] Abdomen: Bowel sounds normal, soft, no tenderness, no masses, no pulsatile masses. [] Skin: Warm, dry, no erythema, no rash. [] Extremities: No tenderness, no cyanosis, no clubbing, ROM intact, no edema. [] Neurologic: Alert and oriented X 2, normal motor function, normal sensory function, no focal deficits noted. [] Psychologic: Affect agitated, judgement impaired, mood normal. General: Alert, Oriented X3 Heart: RRR Abdomen: Normal bowel sounds, Soft Rectal Exam: not examined Extremities: No cyanosis Neuro: Cranial nerves 3-12 NL General: Alert, Oriented X3, Cooperative, No acute distress Heart: Regular rate Lungs: Clear, Other Abdomen: Normal bowel sounds, Soft Extremities: No cyanosis FINAL DIAGNOSIS Problems Medical Problems: (1) Chronic alcohol abuse Status: Acute Brief Hospital Course Mr. Hernandez is a 28 old [sex] who presented with [ ] Discharge Medications Current Medications Ondansetron HCl (Zofran) 4 mg 1X ONCE IV Last administered on 05/13/19at 21:20; Start 05/13/19 at 21:15; Stop 05/13/19 at 21:16; Status DC Multivitamins 10 ml/Thiamine HCl 100 mg/Folic Acid 1 mg/Sodium Chloride 1,011.2 ml @ 1,000.088 mls/hr 1X ONCE IV Last administered on 05/13/19at 21:20; Start 05/13/19 at 21:30; Stop 05/13/19 at 22:30; Status DC Diphtheria/ Tetanus/Acell Pertussis (Boostrix) 0.5 ml ONCE ONCE VAX IM Last a dministered on 05/13/19at 23:06; Start 05/13/19 at 22:45; Stop 05/13/19 at 22:46; Status DC Lorazepam (Ativan Inj) 1 mg ONCE ONCE IV Last administered on 05/13/19at 23:05; Start 05/13/19 at 23:15; Stop 05/13/19 at 23:16; Status DC Ondansetron HCl (Zofran) 4 mg PRN Q8HRS PRN IV NAUSEA/VOMITING; Start 05/14/19 at 02:45; Stop 05/15/19 at 02:45; Status DC Lorazepam (Ativan Inj) 1 mg PRN Q1HR PRN IV For CIWA 8-14; Start 05/14/19 at 02:45; Stop 05/15/19 at 02:45; Status DC Lorazepam (Ativan Inj) 2 mg PRN Q1HR PRN IV For CIWA 15 or greater Last administered on 05/14/19at 19:40; Start 05/14/19 at 02:45; Stop 05/15/19 at 02:45; Status DC Lorazepam (Ativan Inj) 1 mg 1X ONCE IV Last administered on 05/14/19at 03:18; Start 05/14/19 at 02:45; Stop 05/14/19 at 02:46; Status DC Non-Formulary Medication (Quetiapine Fumarate (Seroquel)) 300 mg HS PO ; Start 05/14/19 at 21:00; Stop 05/14/19 at 21:00; Status DC Nicotine (Nicoderm Cq 21mg) 1 patch PRN DAILY PRN TD SMOKING CESSATION Last administered on 05/14/19at 21:49; Start 05/14/19 at 04:00; Stop 05/15/19 at 17:32; Status DC Multivitamins 10 ml/Thiamine HCl 100 mg/Folic Acid 1 mg/Sodium Chloride 1,011.2 ml @ 100 mls/ hr 1X ONCE IV Last administered on 05/14/19at 08:38; Start 05/14/19 at 09:00; Stop 05/14/19 at 19:06; Status DC Quetiapine Fumarate (SEROquel) 300 mg HS PO Last administered on 05/14/19at 21:48; Start 05/14/19 at 04:30; Stop 05/15/19 at 17:32; Status DC Clonidine HCl (Catapres) 0.2 mg PRN TID PRN PO HYPERTENSION; Start 05/14/19 at 17:00; Stop 05/15/19 at 17:32; Status DC Metoprolol Tartrate (Lopressor) 50 mg BID PO Last administered on 05/15/19at 08:29; Start 05/14/19 at 21:00; Stop 05/15/19 at 17:32; Status DC Duloxetine HCl (Cymbalta) 20 mg BID PO Last administered on 05/15/19at 08:29; Start 05/14/19 at 21:00; Stop 05/15/19 at 17:32; Status DC Lorazepam (Ativan Inj) 3 mg PRN Q1HR PRN IV ANXIETY / AGITATION Last administ ered on 05/15/19at 13:29; Start 05/14/19 at 17:00; Stop 05/15/19 at 17:32; Status DC Acetaminophen (Tylenol) 650 mg PRN Q6HRS PRN PO MODERATE PAIN 4-6 Last administered on 05/14/19at 19:53; Start 05/14/19 at 19:45; Stop 05/15/19 at 17:32; Status DC Acetaminophen (Tylenol) 500 mg STK-MED ONCE PO ; Start 05/14/19 at 19:50; Stop 05/14/19 at 19:51; Status DC Multivitamins (Thera M Plus) 1 tab DAILY PO ; Start 05/16/19 at 09:00; Stop 05/16/19 at 09:00; Status DC Thiamine Mononitrate (Vitamin B-1) 100 mg DAILY PO ; Start 05/16/19 at 09:00; Stop 05/16/19 at 09:00; Status DC Active Scripts Active Ativan (Lorazepam) 0.5 Mg Tablet 0.5 Mg PO TID 5 Days Reported Acetaminophen 325 Mg Tablet 650 Mg PO Q6HRS Cymbalta (Duloxetine Hcl) 20 Mg Capsule.dr 20 Mg PO BID Seroquel (Quetiapine Fumarate) 100 Mg Tablet 300 Mg PO HS Metoprolol Tartrate 50 Mg Tablet 50 Mg PO BID Clonazepam 1 Mg Tablet 1 Mg PO TID Clonidine Hcl 0.2 Mg Tablet 0.2 Mg PO TID PRN Vital Signs Vital Signs Date Time Temp Pulse Resp B/P (MAP) Pulse Ox O2 Delivery O2 Flow Rate FiO2 05/15/19 15:05 98.3 66 17 85/57 (66) 97 Room Air 98.3 Allergies Allergies Coded Allergies Type Severity Reaction Last Updated Verified erythromycin base Allergy Intermediate Hives 06/11/15 Yes Disposition/Orders: D/C to Home, Other (LEFT AMA) LAURA WOO MD May 16, 2019 19:53
== END 2019-05-15 17:06 | disposition left against medical advice (07) | DRG 57 ==
LOC: ER 20:51 → EEVIPCON 05-14 02:25 → 6 SOUTH 05-14 02:25
PROVIDERS: ADMIT Internal Medicine; ATTEND Internal Medicine
DX: G31.2 Degeneration of nervous system due to alcohol (principal); F10.239 Alcohol dependence with withdrawal, unspecified; F10.229 Alcohol dependence with intoxication, unspecified; F12.10 Cannabis abuse, uncomplicated; E66.01 Morbid (severe) obesity due to excess calories; S00.81XA Abrasion of other part of head, initial encounter; K74.60 Unspecified cirrhosis of liver; F17.210 Nicotine dependence, cigarettes, uncomplicated; F32.9 Major depressive disorder, single episode, unspecified; F41.9 Anxiety disorder, unspecified; W18.39XA Other fall on same level, initial encounter; Y93.89 Activity, other specified; Z82.49 Family history of ischemic heart disease and other diseases of the circulatory system; Y92.89 Other specified places as the place of occurrence of the external cause; Y99.8 Other external cause status; Z68.35 Body mass index [BMI] 35.0-35.9, adult
CPT/HCPCS: 36415; 70450; 70486; 72125; 80053; 80307; 85007; 85025; 90471; 90715; 96365; 96366; 96375; G0480; J2060; J2405; J7030; 99285-25

== ENCOUNTER 2019-06-04 21:38 | Inpatient (IN) | payer OTHER ==
[~2019-06-04] VITALS: Ht 167.6 cm; Wt 109.8 kg
[~2019-06-04 21:38] MED LIST changes: +ACET325T21 PO; +librium PO
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
[2019-06-04 22:10] LABS: BASO # 0.1 x10^3/uL (0.0-0.2); BASO % 2 % (0-3); EOS # 0.2 x10^3/uL (0.0-0.7); EOS % 2 % (0-3); HEMATOCRIT 42.7 % (39.0-53.0); HEMOGLOBIN 14.8 g/dL (13.0-17.5); LYMPH # 3.2 x10^3/uL (1.0-4.8); LYMPH % 38 % (24-48); MEAN CORPUSCULAR HEMOGLOBIN 34 pg (25-35); MEAN CORPUSCULAR HGB CONC 35 g/dL (31-37); MEAN CORPUSCULAR VOLUME 98 fL (79-100); MONO # 0.6 x10^3/uL (0.0-1.1); MONO % 7 % (0-9); NEUT # 4.3 x10^3uL (1.8-7.7); NEUT % 52 % (31-73); PLATELET COUNT 257 x10^3/uL (140-400); RED BLOOD COUNT 4.38 x10^6/uL (4.30-5.70); RED CELL DISTRIBUTION WIDTH 14.2 % (11.5-14.5); WHITE BLOOD COUNT 8.4 x10^3/uL (4.0-11.0)
[2019-06-04 22:19] LABS: BILIRUBIN,URINE NEGATIVE (NEG); CLARITY,URINE CLEAR; COLOR,URINE YELLOW; NITRITE,URINE NEGATIVE (NEG); PROTEIN,URINE NEGATIVE (NEG-TRACE)
[2019-06-04 22:25] LABS: BARBITURATES NEG (NEG); BENZODIAZEPINES POS (NEG); CANNABINOIDS NEG (NEG); COCAINE NEG (NEG); METHADONE NEG (NEG); OPIATES NEG (NEG); PHENCYCLIDINE NEG (NEG)
[2019-06-04 22:26] LABS: CALCIUM 8.9 mg/dL (8.5-10.1); CREATININE 0.8 mg/dL (0.7-1.3); GFR 113.5; POTASSIUM 3.9 mmol/L (3.5-5.1)
[2019-06-04 22:30] LABS: AMPHETAMINE/METHAMPHETAMINE NEG (NEG)
[2019-06-04] MEDS ORDERED: MULTIVIT INFUSN,ADULT 4,VIT K 10 ML, THIAMINE INJ 100 MG, FOLIC ACID INJ 1 MG in IV NOR... IV ONE (22:30)
[2019-06-04 22:31] LABS: BACTERIA,URINE FEW /HPF (0-FEW); RBC,URINE OCC /HPF (0-2); SQUAMOUS EPITHELIAL CELL,UR FEW /LPF
[2019-06-04 22:35] LABS: ALBUMIN 4.3 g/dL (3.4-5.0); ALBUMIN/GLOBULIN RATIO 1.1 (1.0-1.7); TOTAL BILIRUBIN 0.5 mg/dL (0.2-1.0); TOTAL PROTEIN 8.3 g/dL (6.4-8.2)
[2019-06-04 22:36] LABS: ACETAMIN < 2 mcg/ml (10-30); ETHANOL 338 mg/dL (0-10); SALIC < 2.8 mg/dL (2.8-20.0)
--- NOTE | 2019-06-04 22:36 | RAD ---
PQRS Compliance statement: One or more of the following individualized dose reduction techniques were utilized for this examination: 1. Automated exposure control. 2. Adjustment of the mA and/or kV according to patient size. 3. Use of iterative reconstruction technique. Indication:Trauma TECHNIQUE: CT head without IV contrast COMPARISON: CT had from 05/13/2019 FINDINGS: No pathologic extra-axial or intra-axial fluid collection. The ventricles and basal cisterns are within normal limits. No acute intracranial bleed. Orbits are within normal limits. No large scalp hematoma. No acute calvarial fractures. Visualized paranasal sinuses and mastoid air cells are clear. IMPRESSION: No acute intracranial bleed or acute calvarial fracture. Indication:Trauma. TECHNIQUE: CT of the cervical spine without IV contrast with multiplanar reformats. COMPARISON:None FINDINGS: Cervical spine is in normal anatomic alignment. Atlantoaxial joint interval is preserved. No compression deformity. Facet joints are in normal anatomic alignment. No acute fractures. Noncontrast appearance of the neck soft tissue is within normal limits. Clear lung apices. IMPRESSION: No acute fractures. Electronically signed by: Cr Redding DO (06/04/2019 10:33 PM) [facility]
[2019-06-04] MEDS ORDERED: LORazepam 0.5 MG TABLET ONE (22:46)
[2019-06-04 23:00] VITALS: BP 155/87
--- NOTE | 2019-06-04 23:11 | RAD ---
Indication:Pain TECHNIQUE: 3 views of the right knee COMPARISON:None FINDINGS/ impression: No acute fracture or dislocation. No joint effusion. No arthritic changes. Electronically signed by: Cr Redding DO (06/04/2019 11:08 PM) [facility]
--- NOTE | 2019-06-04 23:13 | RAD ---
Indication:Pain. Swelling. TECHNIQUE: 3 views of the left foot COMPARISON:None FINDINGS/ impression: No acute acute fracture or dislocation. No soft tissue gas. No periosteal reaction or cortical erosion to suggest radiographic signs of osteomyelitis. Electronically signed by: Cr Redding DO (06/04/2019 11:10 PM) [facility]
[2019-06-04] MEDS ORDERED: cloNIDine HCL 0.1 MG TABLET PO PRN (23:15)
[2019-06-04] MEDS ORDERED: IV NORMAL SALINE 1000ML BAG 1,000 ML IV ONE (23:15)
[2019-06-05] VITALS (7 sets, daily range): BP systolic 124–166; BP diastolic 76–99
[2019-06-05] MEDS ORDERED: CLON1TAB PO (00:18)
[2019-06-05] MEDS: ONDANSETRON PF 4 MG/2 ML VIAL. IV PRN ×3 (00:32→17:27)
[2019-06-05] MEDS: LORazepam 1 MG TABLET PO PRN ×4 (00:33→08:40)
[2019-06-05] MEDS ORDERED: NICOTINE POLACRILEX 2MG GUM PACKAGE of 12. BC PRN (08:45)
[2019-06-05] MEDS ORDERED: NICOTINE 14MG PATCH. TD PRN (08:45)
[2019-06-05] MEDS ORDERED: MULTIVIT INFUSN,ADULT 4,VIT K 10 ML, THIAMINE INJ 100 MG, FOLIC ACID INJ 1 MG in IV NOR... IV SCH (09:00)
[2019-06-05 09:16] LABS: ALBUMIN 3.5 g/dL (3.4-5.0); ALBUMIN/GLOBULIN RATIO 0.9 (1.0-1.7); CALCIUM 8.2 mg/dL (8.5-10.1); CREATININE 0.8 mg/dL (0.7-1.3); GFR 113.5; POTASSIUM 3.6 mmol/L (3.5-5.1); TOTAL BILIRUBIN 0.5 mg/dL (0.2-1.0); TOTAL PROTEIN 7.2 g/dL (6.4-8.2)
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
[2019-06-05] MEDS ORDERED: RIFA550T4 PO (21:40)
[2019-06-05] MEDS ORDERED: QUEtiapine 100 MG TABLET. PO SCH (22:45)
[2019-06-06 02:41] VITALS: BP 125/87
[2019-06-06 07:00] VITALS: BP 154/94
[2019-06-06] MEDS: LORazepam 1 MG TABLET PO PRN (08:11)
--- NOTE | 2019-06-06 10:31 | NUR ---
Discharge Note: PT DISCHARGED HOME WITH SELF CARE. PT LEFT FACILITY AT 1030 VIA PRIVATE VEHICLE WITH . PT STABLE AND ALERT UPON DISCHARGE. PT EDUCATED ABOUT DISCHARGE INSTRUCTIONS, DISCHARGE MEDICATIONS, AND FOLLOW-UP CARE WITH [facility]. PT STATED THAT HE WAS GOING TO CHECK IN SOON LEAVING HOSPITAL TODAY. PT PIV REMOVED FROM [facility] WITHOUT COMPLICATIONS, BANDAGE APPLIED. NO CONCERNS VOICED AT THIS TIME. [facility]K [facility] Discharge instructions and discharge home medications reviewed with Patient and a copy given. All questions have been answered and understanding verbalized.
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
== END 2019-06-06 10:34 | disposition home or self-care (01) | DRG 896 ==
LOC: ER 21:38 → 5 NORTH 23:02
PROVIDERS: ADMIT Family Medicine; ATTEND Family Medicine
DX: F10.229 Alcohol dependence with intoxication, unspecified (principal); G92 Toxic encephalopathy; F10.239 Alcohol dependence with withdrawal, unspecified; S83.91XA Sprain of unspecified site of right knee, initial encounter; S93.602A Unspecified sprain of left foot, initial encounter; E66.9 Obesity, unspecified; I10 Essential (primary) hypertension; V86.56XA Driver of dirt bike or motor/cross bike injured in nontraffic accident, initial encounter; Z68.39 Body mass index [BMI] 39.0-39.9, adult; Z82.49 Family history of ischemic heart disease and other diseases of the circulatory system; Y90.8 Blood alcohol level of 240 mg/100 ml or more; K74.60 Unspecified cirrhosis of liver; Y93.89 Activity, other specified; Y92.89 Other specified places as the place of occurrence of the external cause; Y99.8 Other external cause status; Z88.8 Allergy status to other drugs, medicaments and biological substances
CPT/HCPCS: 36415; 70450; 72125; 73562; 73630; 80053; 80307; 80329; 81001; 83690; 85025; G0480; J2060; J2405; J7030

== ENCOUNTER 2019-06-12 17:50 | Emergency (ER) | payer OTHER ==
[~2019-06-12] VITALS: Ht 167.6 cm; Wt 102.1 kg
[~2019-06-12 17:50] MED LIST changes: +CLON1TAB PO
[2019-06-12] MEDS ORDERED: MULTIVIT INFUSN,ADULT 4,VIT K 10 ML, THIAMINE INJ 100 MG, FOLIC ACID INJ 1 MG in IV NOR... IV ONE (18:15)
[2019-06-12] MEDS ORDERED: levETIRAcetam 1,000 MG in IV DEXTROSE 5% 100ML 100 ML IV ONE (18:15)
[2019-06-12 18:17] LABS: BASO # 0.1 x10^3/uL (0.0-0.2); BASO % 1 % (0-3); EOS # 0.1 x10^3/uL (0.0-0.7); EOS % 1 % (0-3); HEMATOCRIT 42.7 % (39.0-53.0); HEMOGLOBIN 14.9 g/dL (13.0-17.5); LYMPH # 1.7 x10^3/uL (1.0-4.8); LYMPH % 26 % (24-48); MEAN CORPUSCULAR HEMOGLOBIN 35 pg (25-35); MEAN CORPUSCULAR HGB CONC 35 g/dL (31-37); MEAN CORPUSCULAR VOLUME 99 fL (79-100); MONO # 0.8 x10^3/uL (0.0-1.1); MONO % 12 % (0-9); NEUT # 3.9 x10^3/uL (1.8-7.7); NEUT % 60 % (31-73); PLATELET COUNT 162 x10^3/uL (140-400); RED BLOOD COUNT 4.33 x10^6/uL (4.30-5.70); RED CELL DISTRIBUTION WIDTH 14.6 % (11.5-14.5); WHITE BLOOD COUNT 6.5 x10^3/uL (4.0-11.0)
[2019-06-12 18:25] LABS: CALCIUM 9.5 mg/dL (8.5-10.1); CREATININE 1.2 mg/dL (0.7-1.3); GFR 71.1; POTASSIUM 3.4 mmol/L (3.5-5.1)
[2019-06-12 18:31] LABS: ALBUMIN/GLOBULIN RATIO 0.9 (1.0-1.7); TOTAL BILIRUBIN 0.4 mg/dL (0.2-1.0); TOTAL PROTEIN 8.3 g/dL (6.4-8.2)
[2019-06-12 18:39] LABS: BILIRUBIN,URINE NEGATIVE (NEG); CLARITY,URINE CLEAR; COLOR,URINE YELLOW; NITRITE,URINE NEGATIVE (NEG); PH,URINE 6.5; PROTEIN,URINE 100 mg/dL (NEG-TRACE)
[2019-06-12 18:43] LABS: BACTERIA,URINE 0 /HPF (0-FEW); HYALINE CASTS, URINE FEW /HPF; RBC,URINE 0 /HPF (0-2); SQUAMOUS EPITHELIAL CELL,UR OCC /LPF; WBC,URINE OCC /HPF (0-4)
[2019-06-12 18:45] LABS: BARBITURATES NEG (NEG); BENZODIAZEPINES POS (NEG); CANNABINOIDS NEG (NEG); COCAINE NEG (NEG); METHADONE NEG (NEG); OPIATES NEG (NEG); PHENCYCLIDINE NEG (NEG)
[2019-06-12 18:47] LABS: AMPHETAMINE/METHAMPHETAMINE NEG (NEG)
[2019-06-12 18:57] VITALS: BP 132/57
--- NOTE | 2019-06-12 18:58 | PHYS DOC ---
Past Medical History Past Medical History: Alcoholism, Hypertension, Seizure Additional Past Medical Histor: seizures from ETOH withdraw; cirrhosis (VELIA DIEGO APRN) Past Surgical History: Other Additional Past Surgical Histo: DIALYSIS PORT REMOVAL RIGHT CHEST (VELIA DIEGO APRN) Alcohol Use: Heavy Drug Use: None (VELIA DIEGO APRN) Adult General Chief Complaint Chief Complaint: SEIZURE HPI HPI Patient is a 28 year old male with history of alcoholism, seizures, who presents to the ED today complaining he had a seizure. He states the seizure was witnessed by his neighbor. He states he fell face forward during the seizure, he has no bruising, or signs of trauma to his face. He states last time he drank was June 01, 2019, unfortunately saw this patient on June 04, 2019 with alcohol level in the 300s, we had to admit him. He states he was sent to rehabilitation's after admission but he signed out AMA from the rehabilitation because he did not like the treatment program. (VELIA DIEGO APRN) Review of Systems Review of Systems Constitutional: Denies fever or chills [] Eyes: Denies change in visual acuity, redness, or eye pain [] HENT: Denies nasal congestion or sore throat [] Respiratory: Denies cough or shortness of breath [] Cardiovascular: No additional information not addressed in HPI [] GI: Denies abdominal pain, nausea, vomiting, bloody stools or diarrhea [] : Denies dysuria or hematuria [] Musculoskeletal: Denies back pain or joint pain [] Integument: Denies rash or skin lesions [] Neurologic: Reports seizure. Denies headache, focal weakness or sensory changes [] Psych: Reports history of alcoholism All other systems were reviewed and found to be within normal limits, except as documented in this note. (VELIA DIEGO APRN) Current Medications Current Medications Current Medications Medications (Trade) Dose Ordered Sig/Patsy Start Time Stop Time Status Last Admin Dose Admin Levetiracetam 1000 mg/Dextrose 110 ml @ 440 mls/hr 1X ONCE 06/12/19 18:15 06/12/19 18:29 DC 06/12/19 18:27 440 MLS/HR Multivitamins 10 ml/Thiamine HCl 100 mg/Folic Acid 1 mg/Sodium Chloride 1,011.2 ml @ 1,000.088 mls/hr 1X ONCE 06/12/19 18:15 06/12/19 19:15 DC 06/12/19 19:14 1,000.088 MLS/HR (MUNIR MAY MD) Allergies Allergies Allergies Coded Allergies Type Severity Reaction Last Updated Verified erythromycin base Allergy Intermediate Hives 06/11/15 Yes (MUNIR MAY MD) Physical Exam Physical Exam Constitutional: Well developed, well nourished, no acute distress, non-toxic appearance. [] HENT: Normocephalic, atraumatic, bilateral external ears normal, oropharynx moist, no oral exudates, nose normal. [] Eyes: PERRLA, EOMI, conjunctiva normal, no discharge. [] Neck: Normal range of motion, no tenderness, supple, no stridor. [] Cardiovascular:Heart rate regular rhythm, no murmur [] Lungs & Thorax: Bilateral breath sounds clear to auscultation [] Abdomen: Bowel sounds normal, soft, no tenderness, no masses, no pulsatile masses. [] Skin: Warm, dry, no erythema, no rash. [] Back: No tenderness, no CVA tenderness. [] Extremities: No tenderness, no cyanosis, no clubbing, ROM intact, no edema. [] Neurologic: Alert and oriented X 3, normal motor function, normal sensory fu nction, no focal deficits noted. [] Psychologic: Affect normal, judgement normal, mood normal. [] (VELIA DIEGO APRN) Current Patient Data Vital Signs Vital Signs Date Time Temp Pulse Resp B/P (MAP) Pulse Ox O2 Delivery O2 Flow Rate FiO2 06/12/19 18:57 118 18 96 06/12/19 17:55 99.0 138/67 (90) Room Air 99.0 (MUNIR MAY MD) Lab Values Laboratory Tests Test 06/12/19 18:00 06/12/19 18:30 White Blood Count 6.5 x10^3/uL (4.0-11.0) Red Blood Count 4.33 x10^6/uL (4.30-5.70) Hemoglobin 14.9 g/dL (13.0-17.5) Hematocrit 42.7 % (39.0-53.0) Mean Corpuscular Volume 99 fL (79-100) Mean Corpuscular Hemoglobin 35 pg (25-35) Mean Corpuscular Hemoglobin Concent 35 g/dL (31-37) Red Cell Distribution Width 14.6 % (11.5-14.5) H Platelet Count 162 x10^3/uL (140-400) Neutrophils (%) (Auto) 60 % (31-73) Lymphocytes (%) (Auto) 26 % (24-48) Monocytes (%) (Auto) 12 % (0-9) H Eosinophils (%) (Auto) 1 % (0-3) Basophils (%) (Auto) 1 % (0-3) Neutrophils # (Auto) 3.9 x10^3/uL (1.8-7.7) Lymphocytes # (Auto) 1.7 x10^3/uL (1.0-4.8) Monocytes # (Auto) 0.8 x10^3/uL (0.0-1.1) Eosinophils # (Auto) 0.1 x10^3/uL (0.0-0.7) Basophils # (Auto) 0.1 x10^3/uL (0.0-0.2) Sodium Level 142 mmol/L (136-145) Potassium Level 3.4 mmol/L (3.5-5.1) L Chloride Level 104 mmol/L (98-107) Carbon Dioxide Level 25 mmol/L (21-32) Anion Gap 13 (6-14) Blood Urea Nitrogen 8 mg/dL (8-26) Creatinine 1.2 mg/dL (0.7-1.3) Estimated GFR (Cockcroft-Gault) 71.1 BUN/Creatinine Ratio 7 (6-20) Glucose Level 135 mg/dL (70-99) H Calcium Level 9.5 mg/dL (8.5-10.1) Total Bilirubin 0.4 mg/dL (0.2-1.0) Aspartate Amino Transferase (AST) 103 U/L (15-37) H Alanine Aminotransferase (ALT) 197 U/L (16-63) H Alkaline Phosphatase 125 U/L (46-116) H Total Protein 8.3 g/dL (6.4-8.2) H Albumin 4.0 g/dL (3.4-5.0) Albumin/Globulin Ratio 0.9 (1.0-1.7) L Lipase 131 U/L (73-393) Ethyl Alcohol Level < 10 mg/dL (0-10) Urine Collection Type Unknown Urine Color Yellow Urine Clarity Clear Urine pH 6.5 Urine Specific [place] 1.015 Urine Protein 100 mg/dL (NEG-TRACE) Urine Glucose (UA) Negative mg/dL (NEG) Urine Ketones (Stick) Negative mg/dL (NEG) Urine Blood Negative (NEG) Urine Nitrite Negative (NEG) Urine Bilirubin Negative (NEG) Urine Urobilinogen Dipstick 1.0 mg/dL (0.2 mg/dL) Urine Leukocyte Esterase Negative (NEG) Urine RBC 0 /HPF (0-2) Urine WBC Occ /HPF (0-4) Urine Squamous Epithelial Cells Occ /LPF Urine Bacteria 0 /HPF (0-FEW) Urine Hyaline Casts Few /HPF Urine Mucus Slight /LPF Urine Opiates Screen Neg (NEG) Urine Methadone Screen Neg (NEG) Urine Barbiturates Neg (NEG) Urine Phencyclidine Screen Neg (NEG) Urine Amphetamine/Methamphetamine Neg (NEG) Urine Benzodiazepines Screen Pos (NEG) Urine Cocaine Screen Neg (NEG) Urine Cannabinoids Screen Neg (NEG) Urine Ethyl Alcohol Neg (NEG) Laboratory Tests 06/12/19 18:00 Laboratory Tests 06/12/19 18:00 (MUNIR MAY MD) EKG EKG [] (VELIA DIEGO APRN) Radiology/Procedures Radiology/Procedures [] (VELIA DIEGO APRN) Course & Med Decision Making Course & Med Decision Making Pertinent Labs and Imaging studies reviewed. (See chart for details) This is a 28-year-old male patient with history of seizure and alcoholism who presents to the ED today complaining of a seizure that occurred prior to coming to the ED. She denies drinking alcohol today. He states the seizure was witnessed by the neighbor. He is on Keppra, he states he has not taken his Keppra since yesterday. He was seen in the ED on May 05, 2019, he was admitted, he went to rehabilitation and signed AMA from rehabilitation. Patient labs were ordered, Keppra as well as banana bag and IV fluids were ordered. I went to reassess patient, he states is going to sign out AMA because he has a job interview tomorrow and cannot be in the ED any longer. Patient is alert oriented able to make his own decisions, he was given the risk of leaving AMA including and disability. Patient refused to sign out AMA. I went to talk to him. Labs with nothing acute. AST 103, ALT 197 consistent with ETOH chronic use. Alcohol level is normal. Drug screen noted for Benzodiazepines. I gave him lab results. His HR has come down from 130s-108 right now. D/c to home. (VELIA DIEGO APRN) Course & Med Decision Making Staff Physician Addendum: I was working in the ER during the course of this patient's visit. I was available for consultation as needed, but I was not directly involved in the care of this patient. (MUNIR MAY MD) Dragon Disclaimer Dragon Disclaimer This electronic medical record was generated, in whole or in part, using a voice recognition dictation system. (VELIA DIEGO APRN) Departure Departure Impression: Primary Impression: Seizures Disposition: 07 AGAINST MEDICAL ADVICE Condition: STABLE Referrals: KALPANA ROSE (PCP) follow up with your doctor tomorrow Patient Instructions: Seizure, Adult Additional Instructions: You were seen for seizures. Please ensure you are taking your seizure medicines. VELIA DIEGO APRN Jun 12, 2019 18:58 MUNIR MAY MD Jun 13, 2019 04:57
== END 2019-06-12 19:45 | disposition home or self-care (01) ==
LOC: ER 17:50
DX: R56.9 Unspecified convulsions (principal); I10 Essential (primary) hypertension; F10.20 Alcohol dependence, uncomplicated; Y90.0 Blood alcohol level of less than 20 mg/100 ml; Z88.1 Allergy status to other antibiotic agents
CPT/HCPCS: 36415; 80053; 80177; 80307; 81001; 83690; 85025; 96365; 96368; 99284; G0480; J1953; J7030

== ENCOUNTER 2019-07-09 17:44 | Emergency (ER) | payer OTHER ==
[~2019-07-09] VITALS: Ht 170.2 cm; Wt 104.3 kg
[2019-07-09 18:17] LABS: BASO % 0 % (0-3); EOS # 0.1 x10^3/uL (0.0-0.7); EOS % 2 % (0-3); HEMATOCRIT 43.9 % (39.0-53.0); HEMOGLOBIN 15.4 g/dL (13.0-17.5); LYMPH # 3.7 x10^3/uL (1.0-4.8); LYMPH % 54 % (24-48); MEAN CORPUSCULAR HEMOGLOBIN 34 pg (25-35); MEAN CORPUSCULAR HGB CONC 35 g/dL (31-37); MEAN CORPUSCULAR VOLUME 96 fL (79-100); MONO # 0.8 x10^3/uL (0.0-1.1); MONO % 11 % (0-9); NEUT # 2.2 x10^3/uL (1.8-7.7); NEUT % 32 % (31-73); PLATELET COUNT 216 x10^3/uL (140-400); RED BLOOD COUNT 4.58 x10^6/uL (4.30-5.70); RED CELL DISTRIBUTION WIDTH 14.2 % (11.5-14.5); WHITE BLOOD COUNT 6.9 x10^3/uL (4.0-11.0)
--- NOTE | 2019-07-09 18:22 | PHYS DOC ---
Past Medical History Past Medical History: Alcoholism, Hypertension, Renal Disease, Seizure Additional Past Medical Histor: seizures from ETOH withdraw; cirrhosis (VELIA DIEGO APRN) Past Surgical History: Other Additional Past Surgical Histo: DIALYSIS PORT REMOVAL RIGHT CHEST (VELIA DIEGO APRN) Alcohol Use: Heavy Drug Use: None (VELIA DIEGO APRN) Adult General Chief Complaint Chief Complaint: SEIZURE HPI HPI Patient is a 28 year old male with history of alcoholism, seizures, hypertension, kidney disease, who presents to the ED today with complaints of possibly having had a seizure. He states he found himself on the floor today and believes he had fallen due to a seizure, he states he believes he has had multiple seizures in the last 2 days. He states he ran out of his medications 2 days ago including Keppra, clonidine, metoprolol. Patient states he's not been drinking but after a long conversation he states he last had mixed drinks 2 days ago. Denies any nausea vomiting. Denies any headache, denies any chest pain or shortness of breath. He is asking why we cannot admit him to the hospital for "monitoring". (VELIA DIEGO APRN) Review of Systems Review of Systems Constitutional: Denies fever or chills [] Eyes: Denies change in visual acuity, redness, or eye pain [] HENT: Denies nasal congestion or sore throat [] Respiratory: Denies cough or shortness of breath [] Cardiovascular: No additional information not addressed in HPI [] GI: Denies abdominal pain, nausea, vomiting, bloody stools or diarrhea [] : Denies dysuria or hematuria [] Musculoskeletal: Reports falling. Denies back pain or joint pain [] Integument: Denies rash or skin lesions [] Neurologic: Reports seizures. Denies headache, focal weakness or sensory changes [] Psych: Reports drinking 2 days ago All other systems were reviewed and found to be within normal limits, except as documented in this note. (VELIA DIEGO APRN) Current Medications Current Medications Current Medications Medications (Trade) Dose Ordered Sig/Patsy Start Time Stop Time Status Last Admin Dose Admin Clonidine HCl (Catapres) 0.2 mg 1X ONCE 07/09/19 18:45 07/09/19 18:46 DC 07/09/19 18:27 0.2 MG Levetiracetam 1000 mg/Dextrose 110 ml @ 440 mls/hr 1X ONCE 07/09/19 19:00 07/09/19 19:01 DC 07/09/19 18:27 440 MLS/HR Metoprolol Tartrate (Lopressor) 25 mg 1X ONCE 07/09/19 18:45 07/09/19 18:46 DC 07/09/19 18:27 25 MG Multivitamins 10 ml/Thiamine HCl 100 mg/Folic Acid 1 mg/Sodium Chloride 1,011.2 ml @ 1,000.088 mls/hr 1X ONCE 07/09/19 19:00 07/09/19 19:01 DC 07/09/19 18:27 1,000.088 MLS/HR (MICHELLE BRINK DO) Allergies Allergies Allergies Coded Allergies Type Severity Reaction Last Updated Verified erythromycin base Allergy Intermediate Hives 06/11/15 Yes (MICHELLE BRINK DO) Physical Exam Physical Exam Constitutional: Well developed, well nourished, no acute distress, non-toxic appearance. [] HENT: Normocephalic, atraumatic, bilateral external ears normal, oropharynx moist, no oral exudates, nose normal. [] Eyes: PERRLA, EOMI, conjunctiva normal, no discharge. [] Neck: Normal range of motion, no tenderness, supple, no stridor. [] Cardiovascular:Heart rate regular rhythm, no murmur [] Lungs & Thorax: Bilateral breath sounds clear to auscultation [] Abdomen: Bowel sounds normal, soft, no tenderness, no masses, no pulsatile masses. [] Skin: Warm, dry, no erythema, no rash. [] Back: No tenderness, no CVA tenderness. [] Extremities: No tenderness, no cyanosis, no clubbing, ROM intact, no edema. Bruising noted to bilateral lower extremities Neurologic: Alert and oriented X 3, normal motor function, normal sensory function, no focal deficits noted. Cranial nerves II through XII intact Psychologic: Flat affect (MUTUNGA,VELIA LINE UP WORKER) Current Patient Data Vital Signs Vital Signs Date Time Temp Pulse Resp B/P (MAP) Pulse Ox O2 Delivery O2 Flow Rate FiO2 07/09/19 18:27 110 198/109 07/09/19 18:23 17 99 07/09/19 17:59 99.0 Room Air 99.0 ([facility]) Lab Values Laboratory Tests Test 07/09/19 18:00 White Blood Count 6.9 x10^3/uL (4.0-11.0) Red Blood Count 4.58 x10^6/uL (4.30-5.70) Hemoglobin 15.4 g/dL (13.0-17.5) Hematocrit 43.9 % (39.0-53.0) Mean Corpuscular Volume 96 fL (79-100) Mean Corpuscular Hemoglobin 34 pg (25-35) Mean Corpuscular Hemoglobin Concent 35 g/dL (31-37) Red Cell Distribution Width 14.2 % (11.5-14.5) Platelet Count 216 x10^3/uL (140-400) Neutrophils (%) (Auto) 32 % (31-73) Lymphocytes (%) (Auto) 54 % (24-48) H Monocytes (%) (Auto) 11 % (0-9) H Eosinophils (%) (Auto) 2 % (0-3) Basophils (%) (Auto) 0 % (0-3) Neutrophils # (Auto) 2.2 x10^3/uL (1.8-7.7) Lymphocytes # (Auto) 3.7 x10^3/uL (1.0-4.8) Monocytes # (Auto) 0.8 x10^3/uL (0.0-1.1) Eosinophils # (Auto) 0.1 x10^3/uL (0.0-0.7) Basophils # (Auto) 0.0 x10^3/uL (0.0-0.2) Sodium Level 143 mmol/L (136-145) Potassium Level 3.8 mmol/L (3.5-5.1) Chloride Level 102 mmol/L (98-107) Carbon Dioxide Level 28 mmol/L (21-32) Anion Gap 13 (6-14) Blood Urea Nitrogen 7 mg/dL (8-26) L Creatinine 0.9 mg/dL (0.7-1.3) Estimated GFR (Cockcroft-Gault) 99.1 BUN/Creatinine Ratio 8 (6-20) Glucose Level 101 mg/dL (70-99) H Lactic Acid Level 1.9 mmol/L (0.4-2.0) Calcium Level 8.5 mg/dL (8.5-10.1) Total Bilirubin 0.3 mg/dL (0.2-1.0) Aspartate Amino Transferase (AST) 31 U/L (15-37) Alanine Aminotransferase (ALT) 38 U/L (16-63) Alkaline Phosphatase 153 U/L (46-116) H Total Protein 8.2 g/dL (6.4-8.2) Albumin 3.9 g/dL (3.4-5.0) Albumin/Globulin Ratio 0.9 (1.0-1.7) L Lipase 165 U/L (73-393) Salicylates Level < 2.8 mg/dL (2.8-20.0) L Salicylate Last Dose Date Unk Salicylate Last Dose Time Unk Acetaminophen Level < 2 mcg/ml (10-30) L Acetaminophen Last Dose Date Unk Acetaminophen Last Dose Time Unk Levetiracetam Level None detected ug/mL Ethyl Alcohol Level 143 mg/dL (0-10) H Laboratory Tests 07/09/19 18:00 Laboratory Tests 07/09/19 18:00 (MICHELLE BRINK DO) EKG EKG [] (VELIA DIEGO APRN) Radiology/Procedures Radiology/Procedures [] (VELIA DIEGO APRN) Course & Med Decision Making Course & Med Decision Making Pertinent Labs and Imaging studies reviewed. (See chart for details) This is a 28-year-old male patient well known to this ED for seizures and alco holism presenting today complaining of possible seizures. Patient ran out of her multiple medications 2 days ago including Keppra, clonidine, metoprolol. He states the last time he had alcohol was 2 days ago. CBC with no acute findings, CMP-nothing really acute. Lactic is 1.9 he did not have a seizure. His alcohol level in the ED is 143. Patient was given Keppra IV in the ED, banana bag running right now. I went to give patient his results, RN was in the room. Informed patient is alcohol level is 143, patient states the last time he drank was 2 days ago "may be i am not processing the alcohol well". Informed patient alcohol level 143 this level is high enough i double it is from 2 days ago, he responds stating "that is not even drunk for me". Gave him his electrolyte level especially potassium which he typically asks for. His potassium is normal. He is now requesting se stop the banana bag and he wants to go home. Reminded patient he needs to consider getting help for alcoholism. We have tried to set him up with rehabilitation and he has signed out AMA before. He was given prescription for the medications is missing including Keppra, clonidine, metoprolol. (VELIA DIEGO APRN) Dragon Disclaimer Dragon Disclaimer This electronic medical record was generated, in whole or in part, using a voice recognition dictation system. (VELIA DIEGO APRN) Departure Departure Impression: Primary Impression: Fall Additional Impression: Acute alcohol intoxication Disposition: HOME, SELF-CARE Condition: STABLE Referrals: KALPANA ROSE (PCP) follow up next week Patient Instructions: Alcohol Intoxication, [id number] Additional Instructions: You have evaluated in the emergency room for alcoholism. We highly recommend you consider getting help. Scripts Metoprolol Tartrate (METOPROLOL TARTRATE) 25 Mg Tablet 1 TAB PO BID, #20 TAB 0 Refills Prov: IVELISSEDevonVELIA APRN 07/09/19 Clonidine Hcl (CLONIDINE HCL) 0.2 Mg Tablet 1 TAB PO BID, #30 TAB 0 Refills Prov: JANAYCHUYVELIA APRN 07/09/19 Levetiracetam (KEPPRA) 1,000 Mg Tablet 1 TAB PO BID, #60 TAB 5 Refills Prov: VELIA DIEGO JOCELYNN 07/09/19 Attending Signature Attending Signature I have reviewed the PA/MANAGED CARE SPECIALIST's note and plan of care. I was available for co nsultation as needed during the patient's visit in the emergency department. I agree with the clinical impression, plan, and disposition. (MICHELLE BRINK DO) Problem Qualifiers Primary Impression: Fall Encounter type: initial encounter Qualified Codes: W19.XXXA - Unspecified fall, initial encounter Additional Impression: Acute alcohol intoxication Complication of substance-induced condition: with unspecified complication Qualified Codes: F10.929 - Alcohol use, unspecified with intoxication, unspecified IVELISSEDevonVELIA CABEZAS Jul 09, 2019 18:22 MICHELLE BRINK DO Jul 13, 2019 09:16
[2019-07-09 18:26] VITALS: BP 198/109
[2019-07-09 18:32] LABS: CALCIUM 8.5 mg/dL (8.5-10.1); CREATININE 0.9 mg/dL (0.7-1.3); GFR 99.1; POTASSIUM 3.8 mmol/L (3.5-5.1)
[2019-07-09 18:33] LABS: ACETAMIN < 2 mcg/ml (10-30); ETHANOL 143 mg/dL (0-10); SALIC < 2.8 mg/dL (2.8-20.0)
[2019-07-09 18:43] LABS: ALBUMIN 3.9 g/dL (3.4-5.0); ALBUMIN/GLOBULIN RATIO 0.9 (1.0-1.7); TOTAL BILIRUBIN 0.3 mg/dL (0.2-1.0); TOTAL PROTEIN 8.2 g/dL (6.4-8.2)
[2019-07-09] MEDS ORDERED: METOPROLOL TART IMMED RELEASE 25 MG TABLET. PO ONE (18:45)
[2019-07-09] MEDS ORDERED: cloNIDine HCL 0.1 MG TABLET PO ONE (18:45)
[2019-07-09] MEDS ORDERED: LEVE100020 PO (18:52)
[2019-07-09] MEDS ORDERED: CLON0.2T PO (18:52)
[2019-07-09] MEDS ORDERED: METO25TA4 PO (18:52)
[2019-07-09] MEDS ORDERED: MULTIVIT INFUSN,ADULT 4,VIT K 10 ML, THIAMINE INJ 100 MG, FOLIC ACID INJ 1 MG in IV NOR... IV ONE (19:00)
[2019-07-09] MEDS ORDERED: levETIRAcetam 1,000 MG in IV DEXTROSE 5% 100ML 100 ML IV ONE (19:00)
== END 2019-07-09 18:54 | disposition home or self-care (01) ==
LOC: ER 17:44
DX: F10.229 Alcohol dependence with intoxication, unspecified (principal); Y90.6 Blood alcohol level of 120-199 mg/100 ml; R56.9 Unspecified convulsions; I10 Essential (primary) hypertension; Z88.1 Allergy status to other antibiotic agents; W18.39XA Other fall on same level, initial encounter; Y93.89 Activity, other specified; Y92.89 Other specified places as the place of occurrence of the external cause; Y99.8 Other external cause status
CPT/HCPCS: 36415; 80053; 80177; 80329; 83605; 83690; 85025; 96365; 96368; 99284; G0480; J1953; J7030

== ENCOUNTER 2020-03-06 18:44 | Emergency (ER) | payer OTHER ==
[~2020-03-06] VITALS: Ht 167.6 cm; Wt 90.9 kg
[~2020-03-06 18:44] MED LIST changes: +ALPR1TAB6 PO; -CLON1TAB11 PO; +CLONAZEPAM1 MG PO; +DOXE25CA PO; +DULO60CA45 PO; +GABA300C18 PO; +LEVE100020 PO; +METO25TA4 PO; +TRAZ150T49 PO
--- NOTE | 2020-03-06 19:08 | PHYS DOC ---
Past Medical History Past Medical History: Alcoholism, Hypertension, Renal Disease, Seizure Additional Past Medical Histor: seizures from ETOH withdraw; cirrhosis Past Surgical History: Other Additional Past Surgical Histo: DIALYSIS PORT REMOVAL RIGHT CHEST Smoking Status: Current Every Day Smoker Alcohol Use: Heavy Drug Use: None General Adult EDM: Chief Complaint: ALCOHOL INTOXICATION HPI: HPI: Patient is a 29 year old male who presents with request for placement for alcohol detox. Patient states that he had been in for detox recently but signed out AGAINST MEDICAL ADVICE because he had to go to court. Patient states that he has since been drinking again and his last drink was on his way to the emergency room. Patient states that he does want to detox but is afraid to detox on his own as he fears having a seizure. He denies any chest pain or shortness of breath. He denies any nausea or vomiting.[] Review of Systems: Review of Systems: Constitutional: Denies fever or chills. [] Respiratory: Denies cough or shortness of breath. [] Cardiovascular: Denies chest pain or edema. [] GI: Denies abdominal pain, nausea, vomiting, bloody stools or diarrhea. [] Neurologic: Denies headache, focal weakness or sensory changes. [] A full 10 point review of systems has been reviewed and is otherwise negative. Heart Score: Risk Factors: Risk Factors: DM, Current or recent (<one month) smoker, HTN, HLP, family history of CAD, obesity. Risk Scores: Score 0 - 3: 2.5% MACE over next 6 weeks - Discharge Home Score 4 - 6: 20.3% MACE over next 6 weeks - Admit for Clinical Observation Score 7 - 10: 72.7% MACE over next 6 weeks - Early Invasive Strategies Allergies: Allergies: Allergies Coded Allergies Type Severity Reaction Last Updated Verified erythromycin base Allergy Intermediate Hives 06/11/15 Yes Physical Exam: PE: Constitutional: Well developed, well nourished, no acute distress, non-toxic appearance. [] HENT: Normocephalic, atraumatic, bilateral external ears normal, oropharynx moist, no oral exudates, nose normal. [] Eyes: PERRLA, EOMI, conjunctiva normal, no discharge. [] Neck: Normal range of motion, no tenderness, supple, no stridor. [] Cardiovascular: Regular rate and rhythm[] Lungs & Thorax: Bilateral breath sounds clear to auscultation [] Abdomen: Bowel sounds normal, soft, no tenderness. [] Skin: Warm, dry, no erythema, no rash. [] Extremities: No tenderness, no cyanosis, no clubbing, ROM intact. [] Neurologic: Alert and oriented X 3, no focal deficits noted. [] EKG: EKG: [] Radiology/Procedures: Radiology/Procedures: [] Course & Med Decision Making: Course & Med Decision Making Pertinent Labs and Imaging studies reviewed. (See chart for details) Patient seen by PAT team and was offered placement to 2 different facilities. Patient indicated that he did not want to be placed at those facilities because they would not allow him to keep his phone. Patient stated that he wanted to go to [facility] but [facility] will not take patient for detox. Patient agrees to discharge at this time. Dragon Disclaimer: Dragon Disclaimer: This electronic medical record was generated, in whole or in part, using a voice recognition dictation system. Departure Departure Impression: Primary Impression: Acute alcohol intoxication Qualified Codes: F10.920 - Alcohol use, unspecified with intoxication, uncomplicated Additional Impression: Alcohol dependence Qualified Codes: F10.20 - Alcohol dependence, uncomplicated Disposition: HOME, SELF-CARE Condition: STABLE Referrals: KALPANA ROSE (PCP) Patient Instructions: Alcohol Intoxication, Alcohol Problems, Alcohol Withdrawal ADAIR HEMPHILL Jr. DO Mar 06, 2020 19:08
[2020-03-06 19:17] LABS: BILIRUBIN,URINE NEGATIVE (NEG); CLARITY,URINE CLEAR; COLOR,URINE AMBER; NITRITE,URINE NEGATIVE (NEG); PH,URINE 5.5 (<5.0-8.0); PROTEIN,URINE NEGATIVE (NEG-TRACE)
[2020-03-06 19:24] LABS: BARBITURATES NEG (NEG); BENZODIAZEPINES POS (NEG); CANNABINOIDS POS (NEG); COCAINE NEG (NEG); METHADONE NEG (NEG); OPIATES NEG (NEG); PHENCYCLIDINE NEG (NEG)
[2020-03-06 19:27] LABS: AMPHETAMINE/METHAMPHETAMINE NEG (NEG)
[2020-03-06 19:29] LABS: SQUAMOUS EPITHELIAL CELL,UR FEW /LPF
[2020-03-06 19:30] LABS: BACTERIA,URINE 0 /HPF (0-FEW); RBC,URINE 0 /HPF (0-2); WBC,URINE OCC /HPF (0-4)
[2020-03-06] MEDS ORDERED: MULTIVIT INFUSN,ADULT 4,VIT K 10 ML, THIAMINE INJ 100 MG, FOLIC ACID INJ 1 MG in IV NOR... IV ONE (19:30)
[2020-03-06 19:50] LABS: BASO # 0.1 x10^3/uL (0.0-0.2); BASO % 1 % (0-3); EOS # 0.1 x10^3/uL (0.0-0.7); EOS % 1 % (0-3); HEMATOCRIT 44.9 % (39.0-53.0); HEMOGLOBIN 15.5 g/dL (13.0-17.5); LYMPH # 3.1 x10^3/uL (1.0-4.8); LYMPH % 39 % (24-48); MEAN CORPUSCULAR HEMOGLOBIN 36 pg (25-35); MEAN CORPUSCULAR HGB CONC 35 g/dL (31-37); MEAN CORPUSCULAR VOLUME 104 fL (79-100); MONO # 0.6 x10^3/uL (0.0-1.1); MONO % 8 % (0-9); NEUT % 51 % (31-73); PLATELET COUNT 212 x10^3/uL (140-400); RED BLOOD COUNT 4.33 x10^6/uL (4.30-5.70); RED CELL DISTRIBUTION WIDTH 17.1 % (11.5-14.5); WHITE BLOOD COUNT 7.9 x10^3/uL (4.0-11.0)
[2020-03-06 19:57] LABS: CALCIUM 9.2 mg/dL (8.5-10.1); CREATININE 0.8 mg/dL (0.7-1.3); GFR 112.8
[2020-03-06 19:58] LABS: POTASSIUM 4.3 mmol/L (3.5-5.1)
[2020-03-06 20:06] LABS: ALBUMIN 4.2 g/dL (3.4-5.0); DIRECT BILIRUBIN 0.1 mg/dL (0.0-0.2); MAGNESIUM 1.5 mg/dL (1.8-2.4); TOTAL BILIRUBIN 0.7 mg/dL (0.2-1.0); TOTAL PROTEIN 7.7 g/dL (6.4-8.2)
[2020-03-06 21:02] VITALS: BP 178/109
== END 2020-03-06 21:58 | disposition home or self-care (01) ==
LOC: ER 18:44
DX: F10.229 Alcohol dependence with intoxication, unspecified (principal); I10 Essential (primary) hypertension; F17.200 Nicotine dependence, unspecified, uncomplicated; N18.9 Chronic kidney disease, unspecified; Z98.890 Other specified postprocedural states; Z88.1 Allergy status to other antibiotic agents
CPT/HCPCS: 36415; 80048; 80076; 80307; 81001; 83735; 85025; 96365; 96375; 99285; G0480; J2060; J3411; J3490; J7030